=== PATIENT | male | born 1935 | race Caucasian/White ===

== ENCOUNTER 2020-06-07 13:47 | IRF | payer MEDICARE, SELFPAY ==
--- NOTE | ~2020-06-07 | XR_ITS ---
EXAMINATION: XR foot LT 2V DATE: 06/14/2020 15:18 INDICATION: Left great toe pain and swelling. TECHNIQUE: 2 views of left foot were obtained. COMPARISON: None. FINDINGS: There is moderate hallux valgus. There are dystrophic calcifications and soft tissue swelli ng medial to head of first metatarsal. No acute fracture. There is mild osteoarthritis of first metat arsophalangeal joint and some the interphalangeal joints and midfoot joints. There are enthesophytes at posterior and plantar aspects of calcaneal tuberosity. IMPRESSION: 1. Moderate hallux longus. 2. Dystrophic calcifications and soft tissue swelling medial to head of first metatarsal. 3. Polyarticular osteoarthritis. Reviewed, dictated and finalized at location A. IMPRESSION: 1. Moderate hallux longus. 2. Dystrophic calcifications and soft tissue swelling medial to head of first m etatarsal. 3. Polyarticular osteoarthritis.
--- NOTE | ~2020-06-07 | XR_ITS ---
EXAMINATION: XR hip RT 2V w AP pelvis EXAM DATE: 06/07/2020 18:05 INDICATION: Right hip pain, limited range of motion. TECHNIQUE: Right hip frontal, 'frog leg' projections for interpretation. Frontal projection pelvis. There is no prior study for comparison. FINDINGS: Moderate to severe right hip, moderate left hip osteoarthritis, probably primary osteoarthr itis. There are no acute pelvic or left hip fractures or dislocations identified. There is no subcut aneous gas. The soft tissue is unremarkable. There are no radiopaque foreign bodies. No evidence of avascular necrosis of the hips. IMPRESSION: Moderate to severe right, moderate left hip osteoarthritis. Reviewed, dictated and finalized at location A.
--- NOTE | 2020-06-07 13:51 | ADMGEN ---
This patient, Av Pimentel, was admitted to [facility] Room 221-01. Patient/family oriented to hospital policies and general routines including ID bracelet, bed and alarms, visiting hours, pain management, procedures, bathroom and other care routines, personal items, smoking policy, room service/diet, and visiting hours. Information on how to activate the Rapid Response Team has been discussed. Patient/Family are encouraged to report perceived risks to care and to ask questions if they do not understand what they are told or what they should do.
[2020-06-07 14:00] VITALS: BP 134/63; PULSE 65; RESP 16; TEMP 36.1; O2SAT 100
[2020-06-07 14:03] VITALS: BMI 33.5
--- NOTE | 2020-06-07 15:45 | WPDREHABHP ---
H&P: HPI History of Present Illness Date/Time: 06/07/20 15:45 Chief Complaint: CVA with left hemiplegia Narrative: HISTORY OF PRESENT ILLNESS: The patient's primary rehab impairment category is stroke The etiologic diagnosis is acute subcortical right hemispheric stroke, left a septal lobe subacute infarct I saw this patient [id number] on 06/07/2020 The patient is a 84-year-old male with past medical history of coronary artery disease hypertension hyperlipidemia diabetes mellitus osteoarthritis rheumatic fever as a child who recently had a non STEMI with stent placement.. Patient was getting cardiac rehab at [facility] on 06/03/2020 when patient began experiencing left-sided weakness. Initial NIH SS was 3. CT of the head showed no acute intracranial hemorrhage. Patient was given tPA and transferred to [facility]. Neurology was consulted. MRI of the brain showed acute subacute infarcts involving the posterior limb of the right internal capsule and left a several lobe. Carotid Dopplers revealed minimal plaques on the right and 50% on the left. Patient was started on aspirin and a statin and Plavix. A bedside swallow was performed and patient was instructed to not have straws. Patient was started on a regular consistency carbohydrate diet with reduced sodium. Patient had mild left-sided weakness decreased safety awareness and impaired balance. Patient will be discharged to rehab on aspirin and Plavix Therapy was initiated at the acute care facility and the patient transferred to us from [facility] on 06/07/2020 FALLS OR SURGERIES: The patient has had major surgeries in the 100 days prior to admission Cardiac stent placement. They had no falls in the past year. They had no falls with injury in the past year. PRIOR LEVEL OF FUNCTION: Eating was [INDEPENDENT] Oral Care was [INDEPENDENT] Toileting Hygiene was [INDEPENDENT] Shower/Bathing was [INDEPENDENT] Upper Body Dressing was [INDEPENDENT] Lower Body Dressing was [INDEPENDENT] Donning/[employer] Footwear was [INDEPENDENT] Rolling Left and Right was [INDEPENDENT] Sit to Lying was [INDEPENDENT] Lying to Sitting was [INDEPENDENT] Sit to Stand was [INDEPENDENT] Bed to Chair Transfers was [INDEPENDENT] Toilet Transfers was [INDEPENDENT] Walking was [INDEPENDENT] [>500 feet] with [NO DEVICE] Wheelchair Mobility was [NOT APPLICABLE PRIOR TO ADMISSION] Stairs were [INDEPENDENT] CURRENT LEVEL OF FUNCTION: Eating was setup or clean up assistance Oral Care was partial to moderate assistance Toileting Hygiene was substantial to maximal assistance Shower/Bathing was substantial to maximal assistance Upper Body Dressing was partial to moderate assistance Lower Body Dressing was substantial to maximal assistance Donning/[employer] Footwear was substantial to maximal assistance Rolling Left and Right was partial to moderate assistance Sit to Lying was partial to moderate assistance Lying to Sitting was partial to moderate assistance Sit to Stand was partial to moderate assistance Bed to Chair Transfers were partial to moderate assistance Toilet Transfers were partial to moderate assistance Walking was 40 ft with a roller walker at partial to moderate assistance Wheelchair Mobility was not tested Stairs were not test GOALS: Our therapists will evaluate the patient and establish the goals. However, upon pre-admission screening, the expected goals were to be [INDEPENDENT] with self-care, [INDEPENDENT] with transfers, and [INDEPENDENT] with functional mobility so that the patient can return home. ESTIMATED LENGTH OF STAY: 7-10 days POTENTIAL BARRIERS TO DISCHARGE: [Family needs training.] [Severity of condition.] ACTIVE CO-MORBIDITIES PRESENT ON ADMISSION: Active co-morbidities include coronary artery disease, hypertension, hyperlipidemia, type 2 diabetes, osteoarthritis, stage 4 chronic kidney disease, left
[2020-06-07 16:43] LABS: Glucose Point of Care 147 (65-105)
[2020-06-07 17:25] VITALS: PULSE 68
[2020-06-07] MEDS: carvediloL 12.5 MG TABLET PO (17:25)
[2020-06-07] MEDS: ACETAMINOPHEN 500 MG TABLET 1000 MG PO (17:25)
[2020-06-07] MEDS: DOCUSATE SODIUM 100 MG CAPSULE PO (20:41)
[2020-06-07] MEDS: TICAGRELOR 90 MG TABLET PO (20:41)
[2020-06-07 22:00] VITALS: BP 174/68; PULSE 61; RESP 16; TEMP 36.5; O2SAT 97
[2020-06-07 22:07] LABS: Glucose Point of Care 256 (65-105)
[2020-06-08 05:16] VITALS: BP 160/80; PULSE 63; RESP 16; TEMP 36.1; O2SAT 98
[2020-06-08 06:05] LABS: Basophils Percent Auto 0.2 % (0.2-1.2); Eosinophils Absolute Auto 0.2 K/mm3 (0-0.3); Eosinophils Percent Auto 1.9 % (0-4.4); Hematocrit 34.6 % (42.0-52.0); Hemoglobin 11.5 g/dL (14.0-18.0); Immature Granulocyte Absolute 0.05 K/mm3 (0.00-0.031); Immature Granulocyte Percent A 0.5 % (0-0.5); Lymphocytes Absolute Auto 1.03 K/mm3 (0.9-3.2); Mean Corpuscular HGB Conc 33.2 g/dl (32-36); Mean Corpuscular Hemoglobin 31.2 pg (26-34); Mean Corpuscular Volume 93.8 fl (80-100); Mean Platelet Volume 10.5 fl (7.4-10.4); Monocytes Percent Auto 10.3 % (2.6-8.5); Neutrophils Absolute Auto 7.1 K/mm3 (1.3-6.7); Neutrophils Percent Auto 76.1 % (45.5-73.1); Platelet Count Result 267 k/mm3 (150-375); Red Blood Count 3.69 M/mm3 (4.6-6.20); Red Cell Distribution Width 13.7 % (11.5-14.5); White Blood Count 9.3 K/mm3 (4.5-10.0)
[2020-06-08 06:15] LABS: Hemoglobin A1C 7.4 % (<5.7)
[2020-06-08 06:19] LABS: Anion Gap 7 mmol/L (8-16); Blood Urea Nitrogen 24 mg/dL (9-20); Carbon Dioxide 27 mmol/L (22-30); Chloride 104 mmol/L (98-107); Cholesterol 116 mg/dL (0-200); Estimated CRCL calculation 44 ml/min; Estimated Glomerular Filt Rate 53; Glucose 203 mg/dL (75-110); HDL Direct 34 mg/dL; Potassium 4.2 mmol/L (3.4-5.0); Sodium 138 mmol/L (137-145); Triglycerides 119 mg/dL (<150)
[2020-06-08 06:24] LABS: Glucose Point of Care 189 (65-105)
[2020-06-08 06:30] LABS: LDL Cholesterol Direct 48 mg/dL
[2020-06-08 09:05] VITALS: PULSE 63
[2020-06-08] MEDS: carvediloL 12.5 MG TABLET PO ×2 (09:05→17:03)
[2020-06-08] MEDS: ASCORBIC ACID 500 MG TABLET PO (09:06)
[2020-06-08] MEDS: ATORVASTATIN 40 MG TABLET 80 MG PO (09:06)
[2020-06-08] MEDS: ASPIRIN 81 MG CHEWABLE TABLET PO (09:06)
[2020-06-08] MEDS: MULTIVITAMINS THERAPEUTIC TAB (*BKC) 1 TABLET PO (09:07)
[2020-06-08] MEDS: DOCUSATE SODIUM 100 MG CAPSULE PO ×2 (09:07→20:47)
[2020-06-08] MEDS: CHOLECALCIFEROL 1,000 UNITS TABLET 2000 UNITS PO (09:07)
[2020-06-08] MEDS: lisinopriL 10 MG TABLET PO (09:07)
[2020-06-08] MEDS: FUROSEMIDE 40 MG TABLET PO (09:07)
[2020-06-08] MEDS: LACTULOSE 20 GM/30 ML UDC PO (09:07)
[2020-06-08] MEDS: PANTOPRAZOLE 40 MG TABLET PO (09:08)
[2020-06-08] MEDS: TICAGRELOR 90 MG TABLET PO ×2 (09:08→20:47)
[2020-06-08] MEDS: polyethylene glycoL 3350 17 GM POWD.PACK PO (09:12)
--- NOTE | 2020-06-08 09:48 | WPDNEURORHBP ---
Subjective Date/time seen: 06/08/20 09:48 Interval history: 84-year-old male with past medical history coronary artery disease hypertension, hyperlipidemia, diabetes mellitus, osteoarthritis, rheumatic fever as a child. Who recently underwent stent placement for NSTEMI. Roughly 2 weeks later patient experienced left hemiplegia. 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 Patient was transferred to [facility] and patient was placed on aspirin statin and Plavix. a bedside swallow revealed issues with drinking from a straw. Today patient complains of insomnia and right hip pain. Review of Systems Review of Systems: All systems reviewed & are unremarkable except as noted in HPI and below Exam Narrative: Exam Narrative: left facial droop is noted. Tongue is midline. Speech is fluent. Patient is able to follow 1 and 2 step directions. Heart rate and rhythm is regular. Lungs are clear. Abdomen is obese. Right upper extremity strength is 4/5. Right lower extremity hip strength is 2/5 with distal strength being 4/5. Left upper extremity strength is 3+ out of 5 with fine motor dexterity deficits. Left lower extremity strength is 3+ to 4-. Sensation is intact in both upper and lower extremities. Objective Data Vital Signs Vital Signs: Vital Signs - 24 hr 06/07/20 14:00 06/07/20 17:25 06/07/20 22:00 Temperature 36.1 C L 36.5 C Pulse Rate 65 68 61 Respiratory Rate 16 16 Blood Pressure 134/63 174/68 H Pulse Oximetry 100 97 06/08/20 05:16 06/08/20 09:05 Temperature 36.1 C L Pulse Rate 63 63 Respiratory Rate 16 Blood Pressure 160/80 H Pulse Oximetry 98 Intake/Output Intake/Output: Intake & Output 06/05/20 06/06/20 06/07/20 06/08/20 23:59 23:59 23:59 23:59 Intake Total 180 240 Balance 180 240 Meds/Results Medications: Active Medications Generic Name Dose Route Start Last Admin Trade Name Freq PRN Reason Stop Dose Admin Acetaminophen 1,000 mg 06/07/20 16:35 06/07/20 17:25 Acetaminophen 500 Mg Tablet PO 1,000 mg Q6H PRN Administration Mild Pain (1-3) or Fever Ascorbic Acid 500 mg 06/08/20 09:00 06/08/20 09:06 Ascorbic Acid 500 Mg Tablet PO 500 mg DAILY ELEN Administration Aspirin 81 mg 06/08/20 09:00 06/08/20 09:06 Aspirin 81 Mg Chewable Tablet PO 81 mg DAILY ELEN Administration Atorvastatin Calcium 80 mg 06/08/20 09:00 06/08/20 09:06 Atorvastatin 40 Mg Tablet PO 80 mg DAILY ELEN Administration Carvedilol 12.5 mg 06/07/20 17:00 06/08/20 09:05 Carvedilol 12.5 Mg Tablet PO 12.5 mg BIDWM ELEN Administration Dextrose 12.5 gm 06/07/20 16:34 Dextrose 50% 25 Gm/50 Ml Syringe IV PUSH PRN PRN Hypoglycemia Protocol Docusate Sodium 100 mg 06/07/20 21:00 06/08/20 09:07 Docusate Sodium 100 Mg Capsule PO 100 mg Q12HR ELEN Administration Furosemide 40 mg 06/08/20 09:00 06/08/20 09:07 Furosemide 40 Mg Tablet PO 40 mg DAILY ELEN Administration Glucagon 1 mg 06/07/20 16:34 Glucagon For Inj 1 Mg Vial IM PRN PRN Hypoglycemia Protocol Glucose 15 gm 06/07/20 16:34 Glucose Oral Gel 15 Gm Of Glucse In 37.5 Gm Tube PO PRN PRN Hypoglycemia Protocol Dextrose 1,000 mls @ 100 mls/hr 06/07/20 16:34 Dextrose 5% 1,000 Ml IVPB PRN PRN Hypoglycemia Protocol Insulin Aspart 4 - 8 units 06/07/20 17:00 06/08/20 09:06 Insulin Aspart (*Bkc) 100 Units/Ml SUB-Q Not Given TIDWM [facility] Protocol Insulin Glargine 20 units 06/07/20 21:00 Insulin Glargine (*Bkc) 100 Units/Ml SUB-Q Q12HR [facility] Lactulose 20 gm 06/08/20 09:00 06/08/20 09:07 Lactulose 20 Gm/30 Ml Udc PO 20 gm DAILY ELEN Administration Lisinopril 10 mg 06/08/20 09:00 06/08/20 09:07 Lisinopril 10 Mg Tablet PO 10 mg DAILY ELEN Administration Multivitamins Therapeutic 1 tabl
[2020-06-08 12:18] LABS: Glucose Point of Care 366 (65-105)
[2020-06-08] MEDS: ACETAMINOPHEN 500 MG TABLET 1000 MG PO ×2 (12:21→17:03)
[2020-06-08] MEDS: INSULIN ASPART (*BKC) 100 UNITS/ML SUB-Q ×2 (12:21→17:07)
[2020-06-08 14:00] VITALS: BP 158/81; PULSE 62; RESP 20; TEMP 36.8; O2SAT 97
[2020-06-08 15:26] LABS: Alanine Aminotransferase 14 U/L (4-50); Albumin Level 3.4 g/dL (3.5-5.1); Alkaline Phosphatase 89 U/L (38-126); Anion Gap 9 mmol/L (8-16); Aspartate Amino Transferase 26 U/L (17-59); Bilirubin,Total 0.6 mg/dL (0.2-1.3); Blood Urea Nitrogen 27 mg/dL (9-20); Calcium 8.5 mg/dL (8.4-10.2); Carbon Dioxide 24 mmol/L (22-30); Chloride 103 mmol/L (98-107); Estimated CRCL calculation 44 ml/min; Estimated Glomerular Filt Rate 53; Glucose 355 mg/dL (75-110); Potassium 4.8 mmol/L (3.4-5.0); Sodium 136 mmol/L (137-145); Uric Acid 6.1 mg/dL (3.5-8.5)
[2020-06-08 16:52] LABS: Glucose Point of Care 285 (65-105)
[2020-06-08 17:03] VITALS: PULSE 62
[2020-06-08] MEDS: INSULIN ASPART (*BKC) 100 UNITS/ML 10 UNITS SUB-Q (17:07)
[2020-06-08 20:00] VITALS: PULSE 58; RESP 18; O2SAT 100
[2020-06-08] MEDS: MELATONIN 3 MG TABLET PO (20:47)
[2020-06-08 20:50] VITALS: BP 134/60; PULSE 58; RESP 18; TEMP 36.1; O2SAT 100
[2020-06-08] MEDS: INSULIN GLARGINE (*BKC) 100 UNITS/ML 20 UNITS SUB-Q (21:02)
[2020-06-08 21:09] LABS: Glucose Point of Care 212 (65-105)
[2020-06-09] VITALS (7 sets, daily range): BP systolic 130–140; BP diastolic 61–66; PULSE 52–76; RESP 18–20; TEMP 35.9–36.8; O2SAT 96–99
[2020-06-09 08:12] LABS: Glucose Point of Care 167 (65-105)
--- NOTE | 2020-06-09 08:30 | PCSTNOTE ---
Please refer to the Bedside Swallow Evaluation in the EMR. Pt will exhibit overt SX of aspiration with use os straw and/or taking large drinks. Frequent observation is necessary in order to prevent any potential instances of aspiration. Pt is able to remember to not use a straw but requires verbal cues in order to take small sips.
--- NOTE | 2020-06-09 09:07 | WPDNEURORHBP ---
Subjective Date/time seen: 06/09/20 09:07 Interval history: 84-year-old male with past medical history coronary artery disease hypertension, hyperlipidemia, diabetes mellitus, osteoarthritis, gout, rheumatic fever as a child who recently underwent stent placement for NSTEMI. Roughly 2 weeks later patient experienced left hemiplegia. 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 Patient was transferred to [facility] and patient was placed on aspirin statin and Plavix. A bedside swallow revealed issues with drinking from a straw. Patient stated that I slept the best I ever have since being admitted to the hospital Patient has a history of gout and had pain to the R big toe. Pain is better today since starting Allopurinol Review of Systems Review of Systems: All systems reviewed & are unremarkable except as noted in HPI and below Functional Status Ambulation Ability Ability to Ambulate 10 Feet: Minimum Assistance X 1 Ability to Ambulate 50 Feet With 2 Turns: Minimum Assistance X 1 Ambulation Assistive Devices: Walker, Wheeled Exam Narrative: Exam Narrative: Left facial droop is noted. Tongue is midline. Speech is fluent. Patient is able to follow 1 and 2 step directions. Heart rate and rhythm is regular. Lungs are clear. Abdomen is obese. Right upper extremity strength is 4/5. Right lower extremity hip strength is 2/5 with distal strength being 4/5. Left upper extremity strength is 3+ out of 5 with fine motor dexterity deficits. Left lower extremity strength is 3+ to 4-. Sensation is intact in both upper and lower extremities. Transfers are max assist. Gait min assist 50 feet. Objective Data Vital Signs Vital Signs: Vital Signs - 24 hr 06/08/20 14:00 06/08/20 17:03 06/08/20 20:00 Temperature 36.8 C Pulse Rate 62 62 58 L Respiratory Rate 20 18 Blood Pressure 158/81 H Pulse Oximetry 97 100 06/08/20 20:50 06/09/20 05:36 Temperature 36.1 C L 35.9 C L Pulse Rate 58 L 52 L Respiratory Rate 18 18 Blood Pressure 134/60 138/61 Pulse Oximetry 100 99 Intake/Output Intake/Output: Intake & Output 06/06/20 06/07/20 06/08/20 06/09/20 23:59 23:59 23:59 23:59 Intake Total 180 720 Balance 180 720 Meds/Results Medications: Active Medications Generic Name Dose Route Start Last Admin Trade Name Frekun PRN Reason Stop Dose Admin Acetaminophen 1,000 mg 06/07/20 16:35 06/07/20 17:25 Acetaminophen 500 Mg Tablet PO 1,000 mg Q6H PRN Administration Mild Pain (1-3) or Fever Acetaminophen 1,000 mg 06/08/20 09:00 06/08/20 17:03 Acetaminophen 500 Mg Tablet PO 1,000 mg BID ELEN Administration Allopurinol 100 mg 06/09/20 08:00 Allopurinol 100 Mg Tablet PO 06/18/20 08:00 DAILY@0800 ELEN Ascorbic Acid 500 mg 06/08/20 09:00 06/08/20 09:06 Ascorbic Acid 500 Mg Tablet PO 500 mg DAILY ELEN Administration Aspirin 81 mg 06/08/20 09:00 06/08/20 09:06 Aspirin 81 Mg Chewable Tablet PO 81 mg DAILY ELEN Administration Atorvastatin Calcium 80 mg 06/08/20 09:00 06/08/20 09:06 Atorvastatin 40 Mg Tablet PO 80 mg DAILY ELEN Administration Carvedilol 12.5 mg 06/07/20 17:00 06/08/20 17:03 Carvedilol 12.5 Mg Tablet PO 12.5 mg BIDWM ELEN Administration Dextrose 12.5 gm 06/07/20 16:34 Dextrose 50% 25 Gm/50 Ml Syringe IV PUSH PRN PRN Hypoglycemia Protocol Docusate Sodium 100 mg 06/07/20 21:00 06/08/20 20:47 Docusate Sodium 100 Mg Capsule PO 100 mg Q12HR ELEN Administration Furosemide 40 mg 06/08/20 09:00 06/08/20 09:07 Furosemide 40 Mg Tablet PO 40 mg DAILY ELEN Administration Glucagon 1 mg 06/07/20 16:34 Glucagon For Inj 1 Mg Vial IM PRN PRN Hypoglycemia Protocol Glucose 15 gm 06/07/20 16:34 Glucose Oral Gel 15 Gm Of Glucse In 37.5 Gm Tube PO PRN PRN Hypoglycemia Protocol
[2020-06-09] MEDS: ACETAMINOPHEN 500 MG TABLET 1000 MG PO ×3 (09:37→21:20)
[2020-06-09] MEDS: ATORVASTATIN 40 MG TABLET 80 MG PO (09:37)
[2020-06-09] MEDS: CHOLECALCIFEROL 1,000 UNITS TABLET 2000 UNITS PO (09:37)
[2020-06-09] MEDS: TICAGRELOR 90 MG TABLET PO ×2 (09:37→21:10)
[2020-06-09] MEDS: ASPIRIN 81 MG CHEWABLE TABLET PO (09:37)
[2020-06-09] MEDS: carvediloL 12.5 MG TABLET PO ×2 (09:38→17:37)
[2020-06-09] MEDS: lisinopriL 10 MG TABLET PO (09:38)
[2020-06-09] MEDS: allopurinoL 100 MG TABLET PO (09:38)
[2020-06-09] MEDS: ASCORBIC ACID 500 MG TABLET PO (09:38)
[2020-06-09] MEDS: FUROSEMIDE 40 MG TABLET PO (09:38)
[2020-06-09] MEDS: DOCUSATE SODIUM 100 MG CAPSULE PO ×2 (09:38→21:10)
[2020-06-09] MEDS: polyethylene glycoL 3350 17 GM POWD.PACK PO (09:39)
[2020-06-09] MEDS: MULTIVITAMINS THERAPEUTIC TAB (*BKC) 1 TABLET PO (09:39)
[2020-06-09] MEDS: LACTULOSE 20 GM/30 ML UDC PO (09:39)
[2020-06-09] MEDS: PANTOPRAZOLE 40 MG TABLET PO (09:39)
[2020-06-09] MEDS: INSULIN ASPART (*BKC) 100 UNITS/ML 10 UNITS SUB-Q ×3 (09:42→17:38)
[2020-06-09] MEDS: INSULIN GLARGINE (*BKC) 100 UNITS/ML 20 UNITS SUB-Q ×2 (09:44→21:18)
[2020-06-09 12:25] LABS: Glucose Point of Care 373 (65-105)
[2020-06-09] MEDS: INSULIN ASPART (*BKC) 100 UNITS/ML SUB-Q ×2 (12:41→17:37)
[2020-06-09 16:57] LABS: Glucose Point of Care 332 (65-105)
[2020-06-09] MEDS: MELATONIN 3 MG TABLET PO (21:10)
[2020-06-09 21:38] LABS: Glucose Point of Care 196 (65-105)
[2020-06-10 05:09] VITALS: BP 136/76; PULSE 66; RESP 20; TEMP 36.1; O2SAT 99
[2020-06-10 06:45] LABS: Glucose Point of Care 149 (65-105)
[2020-06-10] MEDS: PANTOPRAZOLE 40 MG TABLET PO (08:37)
[2020-06-10] MEDS: CHOLECALCIFEROL 1,000 UNITS TABLET 2000 UNITS PO (08:37)
[2020-06-10] MEDS: LACTULOSE 20 GM/30 ML UDC PO (08:38)
[2020-06-10] MEDS: ATORVASTATIN 40 MG TABLET 80 MG PO (08:38)
[2020-06-10] MEDS: TICAGRELOR 90 MG TABLET PO ×2 (08:38→20:12)
[2020-06-10] MEDS: ASCORBIC ACID 500 MG TABLET PO (08:38)
[2020-06-10] MEDS: ACETAMINOPHEN 500 MG TABLET 1000 MG PO ×2 (08:38→18:10)
[2020-06-10 08:42] VITALS: PULSE 66
[2020-06-10] MEDS: carvediloL 12.5 MG TABLET PO ×2 (08:42→18:11)
[2020-06-10] MEDS: INSULIN ASPART (*BKC) 100 UNITS/ML 10 UNITS SUB-Q ×2 (08:42→12:44)
[2020-06-10] MEDS: ASPIRIN 81 MG CHEWABLE TABLET PO (08:43)
[2020-06-10] MEDS: FUROSEMIDE 40 MG TABLET PO (08:43)
[2020-06-10] MEDS: INSULIN GLARGINE (*BKC) 100 UNITS/ML 20 UNITS SUB-Q (08:43)
[2020-06-10] MEDS: DOCUSATE SODIUM 100 MG CAPSULE PO ×2 (08:43→20:12)
[2020-06-10] MEDS: polyethylene glycoL 3350 17 GM POWD.PACK PO (08:44)
[2020-06-10] MEDS: lisinopriL 10 MG TABLET PO (08:44)
[2020-06-10] MEDS: MULTIVITAMINS THERAPEUTIC TAB (*BKC) 1 TABLET PO (08:44)
[2020-06-10] MEDS: allopurinoL 100 MG TABLET PO (08:50)
--- NOTE | 2020-06-10 08:50 | RPD ---
INDIVIDUALIZED PLAN OF CARE FOR Av Pimentel Brief Synthesis of Pre-Admission Screen, Post-Admission Evaluation and Therapy Evaluations: The patient presents to rehab with an acute subcortical right hemispheric stroke. Comorbidities include coronary artery disease, hypertension, hyperlipidemia, diabetes mellitus type 2, osteoarthritis, stage IV chronic kidney disease, left facial droop, and status post tPA administration. The complexity of the patient's medical management, nursing, and therapy needs require an inpatient rehab hospital stay with a physician-led interdisciplinary team approach. The patient?s needs will be best met in an intensive program vs. at a lower level of care. The patient requires physician services for medical oversight and coordination of care. Emotional needs will be monitored as depression is a common sequelae of stroke. The patient needs physician monitoring and treatment of hypertension, diabetes mellitus, chronic kidney disease, monitoring for adverse reactions to new medications, monitoring of infection, and pain control. The patient requires nursing services for frequent neuro checks, anticoagulation therapy, medication management and education, pressure relief and skin care management, monitoring of labs, diabetes management and education, and fall/safety precautions. The patient will participate in stroke-specific education regarding risk modification to decrease the risk of further stroke; the family will also be invited to participate. Deficits include:ADLs, Balance, Endurance, Family Training/Education, Mobility, Pain Management, ROM, Safety, Strength, and Transfers. Municipal [employer] Magistrate/Case Management for: Discharge Planning and Patient/Family Counseling Physical Therapy: 5 days per week for 75 minutes. Treatments may include: Therapeutic Exercise, Gait Training, Neuromuscular Re-education, Transfer Training, Community Reintegration, Bed Mobility, Patient/Family Education, Wheelchair Mobility Group Therapy/Concurrent Therapy Rationales: -Improve attention span during functional activities in a distracted environment. -Enhance problem solving and/or adequate judgment skills during functional activities in a distracted environment. -Promote increased safety awareness in a distracted environment to reduce fall risk with functional tasks, transfers, and ambulation to allow a more safe, self-sufficient return to the home environment. -Improve dynamic balance skills to promote safety and independence with functional activities in a distracted environment for maximum gain. Occupational Therapy: 5 days per week for 75 minutes. Treatments may include: Therapeutic Exercise, Therapeutic Activity, Cognitive Training, Self-Care Transfer Training, Community Reintegration, Home Management, Patient/Family Education, Wheelchair Mobility Training, Energy Conservation Training Group Therapy/Concurrent Therapy Rationales: -Allow therapist to observe and teach generalization and carry-over of skills learned in individual therapy. -Enhance problem solving and sequencing skills during therapeutic activities in a distracted environment. -Promote increased safety awareness in a realistic setting to reduce fall risk with functional tasks due to visual and verbal distractions. -Increase functional level with ADLs, ADL transfers and use of adaptive equipment through therapeutic activities with others while promoting safety to allow a more safe, self-sufficient return home. Speech Therapy: 5 days per week for 30 minutes. Treatments may include: Dysphasia Therapy, Speech/Language/Communication Therapy, Cognitive Training, Patient/Family Education Group Therapy/Concurrent Therapy - Rationale: -Allow therapist to observe and teach generalization and carry-over of skills learned in individual therapy. -Improve comprehension skills with complex or abstract ideas through discussion in a realistic setting. -Enhance problem solving skills with complex issues during
--- NOTE | 2020-06-10 10:51 | WPDNEURORHBP ---
Subjective Date/time seen: 06/10/20 10:51 Interval history: 84-year-old male with past medical history coronary artery disease hypertension, hyperlipidemia, diabetes mellitus, osteoarthritis, gout, rheumatic fever as a child who recently underwent stent placement for NSTEMI. Roughly 2 weeks later patient experienced left hemiplegia. 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 Patient was transferred to [facility] and patient was placed on aspirin, statin and Plavix. A bedside swallow revealed issues with drinking from a straw. Patient voices no complaints. Review of Systems Review of Systems: All systems reviewed & are unremarkable except as noted in HPI and below Functional Status Ambulation Ability Ability to Ambulate 10 Feet: Minimum Assistance X 1 Ability to Ambulate 50 Feet With 2 Turns: Minimum Assistance X 1 Ambulation Assistive Devices: Walker, Wheeled Exam Narrative: Exam Narrative: Left facial droop is noted. Tongue is midline. Speech is fluent. Patient is able to follow 1 and 2 step directions. Heart rate and rhythm is regular. Lungs are clear. Abdomen is obese. Right upper extremity strength is 4/5. Right lower extremity hip strength is 2/5 with distal strength being 4/5. Left upper extremity strength is 3+ out of 5 with fine motor dexterity deficits. Left lower extremity strength is 3+ to 4-. Sensation is intact in both upper and lower extremities. Transfers are moderate assistance of 1. Gait is 150 ft with minimal assistance with a wheeled walker. Objective Data Vital Signs Vital Signs: Vital Signs - 24 hr 06/09/20 14:00 06/09/20 17:37 06/09/20 19:56 Temperature 36.8 C 35.9 C L Pulse Rate 68 68 54 L Respiratory Rate 20 18 Blood Pressure 140/66 130/64 Pulse Oximetry 96 97 06/09/20 20:00 06/10/20 05:09 06/10/20 08:42 Temperature 36.1 C L Pulse Rate 76 66 66 Respiratory Rate 18 20 Blood Pressure 136/76 Pulse Oximetry 97 99 Intake/Output Intake/Output: Intake & Output 06/07/20 06/08/20 06/09/20 06/10/20 23:59 23:59 23:59 23:59 Intake Total 180 720 720 240 Balance 180 720 720 240 Meds/Results Medications: Active Medications Generic Name Dose Route Start Last Admin Trade Name Danita PRN Reason Stop Dose Admin Acetaminophen 1,000 mg 06/07/20 16:35 06/09/20 21:20 Acetaminophen 500 Mg Tablet PO 1,000 mg Q6H PRN Administration Mild Pain (1-3) or Fever Acetaminophen 1,000 mg 06/08/20 09:00 06/10/20 08:38 Acetaminophen 500 Mg Tablet PO 1,000 mg BID ELEN Administration Allopurinol 100 mg 06/09/20 08:00 06/10/20 08:50 Allopurinol 100 Mg Tablet PO 06/18/20 08:00 100 mg DAILY@0800 ELEN Administration Ascorbic Acid 500 mg 06/08/20 09:00 06/10/20 08:38 Ascorbic Acid 500 Mg Tablet PO 500 mg DAILY ELEN Administration Aspirin 81 mg 06/08/20 09:00 06/10/20 08:43 Aspirin 81 Mg Chewable Tablet PO 81 mg DAILY ELEN Administration Atorvastatin Calcium 80 mg 06/08/20 09:00 06/10/20 08:38 Atorvastatin 40 Mg Tablet PO 80 mg DAILY ELEN Administration Carvedilol 12.5 mg 06/07/20 17:00 06/10/20 08:42 Carvedilol 12.5 Mg Tablet PO 12.5 mg BIDWM ELEN Administration Dextrose 12.5 gm 06/07/20 16:34 Dextrose 50% 25 Gm/50 Ml Syringe IV PUSH PRN PRN Hypoglycemia Protocol Docusate Sodium 100 mg 06/07/20 21:00 06/10/20 08:43 Docusate Sodium 100 Mg Capsule PO 100 mg Q12HR ELEN Administration Furosemide 40 mg 06/08/20 09:00 06/10/20 08:43 Furosemide 40 Mg Tablet PO 40 mg DAILY ELEN Administration Glucagon 1 mg 06/07/20 16:34 Glucagon For Inj 1 Mg Vial IM PRN PRN Hypoglycemia Protocol Glucose 15 gm 06/07/20 16:34 Glucose Oral Gel 15 Gm Of Glucse In 37.5 Gm Tube PO PRN PRN Hypoglycemia Protocol Dextrose 1,000 mls @ 100 mls/hr 06/07/20 16:34 D
[2020-06-10 11:56] LABS: Glucose Point of Care 353 (65-105)
[2020-06-10 13:00] VITALS: BMI 33.5
--- NOTE | 2020-06-10 13:21 | PCNSR ---
On 06/10/20, the student, Hodan Estevez, provided care and completed [facility] documentation on this patient. I have reviewed the student's documentation and agree with the findings.
[2020-06-10 14:00] VITALS: BP 122/48; PULSE 58; RESP 18; TEMP 36.6; O2SAT 97
--- NOTE | 2020-06-10 16:06 | PCPTNOTE ---
Av Pimentel was evaluated for a wheeled walker on 06/10/2020 by this physical therapist. The wheeled walker will resolve patient's mobility limitations and will be used for ADL's within the home. The patient can safely use the wheeled walker. ?The wheeled walker will resolve the patient?s mobility deficits, including decreased balance, endurance and L hemiparesis.
[2020-06-10 16:48] LABS: Glucose Point of Care 271 (65-105)
[2020-06-10 18:11] VITALS: PULSE 58
[2020-06-10] MEDS: INSULIN ASPART (*BKC) 100 UNITS/ML 14 UNITS SUB-Q (18:11)
[2020-06-10 19:55] LABS: Glucose Point of Care 363 (65-105)
[2020-06-10] MEDS: INSULIN GLARGINE (*BKC) 100 UNITS/ML 24 UNITS SUB-Q (20:11)
[2020-06-10] MEDS: MELATONIN 3 MG TABLET PO (20:12)
[2020-06-10 21:54] VITALS: BP 144/64; PULSE 65; RESP 16; TEMP 37; O2SAT 98
[2020-06-11 01:57] LABS: Glucose Point of Care 204 (65-105)
[2020-06-11 06:00] VITALS: BP 179/68; PULSE 66; RESP 16; TEMP 36.2; O2SAT 97
[2020-06-11 06:36] LABS: Glucose Point of Care 153 (65-105)
[2020-06-11] MEDS: INSULIN ASPART (*BKC) 100 UNITS/ML 14 UNITS SUB-Q ×3 (07:45→17:48)
[2020-06-11] MEDS: INSULIN GLARGINE (*BKC) 100 UNITS/ML 24 UNITS SUB-Q ×2 (07:46→20:21)
[2020-06-11] MEDS: MULTIVITAMINS THERAPEUTIC TAB (*BKC) 1 TABLET PO (08:55)
[2020-06-11] MEDS: CHOLECALCIFEROL 1,000 UNITS TABLET 2000 UNITS PO (08:55)
[2020-06-11] MEDS: ASCORBIC ACID 500 MG TABLET PO (08:55)
[2020-06-11] MEDS: DOCUSATE SODIUM 100 MG CAPSULE PO ×2 (08:55→20:21)
[2020-06-11] MEDS: lisinopriL 10 MG TABLET PO (08:55)
[2020-06-11] MEDS: ATORVASTATIN 40 MG TABLET 80 MG PO (08:55)
[2020-06-11 08:56] VITALS: PULSE 68
[2020-06-11] MEDS: ASPIRIN 81 MG CHEWABLE TABLET PO (08:56)
[2020-06-11] MEDS: PANTOPRAZOLE 40 MG TABLET PO (08:56)
[2020-06-11] MEDS: TICAGRELOR 90 MG TABLET PO ×2 (08:56→20:21)
[2020-06-11] MEDS: FUROSEMIDE 40 MG TABLET PO (08:56)
[2020-06-11] MEDS: allopurinoL 100 MG TABLET PO (08:56)
[2020-06-11] MEDS: carvediloL 12.5 MG TABLET PO ×2 (08:56→17:48)
[2020-06-11] MEDS: ACETAMINOPHEN 500 MG TABLET 1000 MG PO ×2 (08:56→17:48)
[2020-06-11 11:53] LABS: Glucose Point of Care 206 (65-105)
[2020-06-11] MEDS: INSULIN ASPART (*BKC) 100 UNITS/ML SUB-Q (12:23)
[2020-06-11 14:00] VITALS: BP 162/71; PULSE 69; RESP 20; TEMP 36.3; O2SAT 96
--- NOTE | 2020-06-11 14:40 | WPDNEURORHBP ---
Subjective Date/time seen: 06/11/20 14:40 Interval history: 84-year-old male with past medical history coronary artery disease, hypertension, hyperlipidemia, diabetes mellitus, osteoarthritis, gout, rheumatic fever as a child who recently underwent stent placement for NSTEMI. Roughly 2 weeks later patient experienced left hemiplegia. 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 Patient was transferred to [facility] and patient was placed on aspirin, statin and Plavix. A bedside swallow revealed issues with drinking from a straw. Patient admits to a good night sleep. is present Review of Systems Review of Systems: All systems reviewed & are unremarkable except as noted in HPI and below Functional Status Ambulation Ability Ability to Ambulate 10 Feet: Minimum Assistance X 1 Ability to Ambulate 50 Feet With 2 Turns: Minimum Assistance X 1 Ability to Ambulate 150 Feet: Minimum Assistance X 1 Ambulation Assistive Devices: Walker, Wheeled Transfers Ability Ability to Transfer In/Out of Chair: Minimum Assistance X 1 Exam Narrative: Exam Narrative: Left facial droop is noted. Tongue is midline. Speech is fluent. Patient is able to follow 1 and 2 step directions. Heart rate and rhythm is regular. Lungs are clear. Abdomen is obese. Right upper extremity strength is 4/5. Right lower extremity hip strength is 2/5 with distal strength being 4/5. Left upper extremity strength is 3+ out of 5 with fine motor dexterity deficits. Left lower extremity strength is 3+ to 4-. Sensation is intact in both upper and lower extremities. Transfers are moderate assistance of 1. Gait is 150 ft with minimal assistance with a wheeled walker. Objective Data Vital Signs Vital Signs: Vital Signs - 24 hr 06/10/20 18:11 06/10/20 21:54 06/11/20 06:00 Temperature 37.0 C 36.2 C L Pulse Rate 58 L 65 66 Respiratory Rate 16 16 Blood Pressure 144/64 H 179/68 H Pulse Oximetry 98 97 06/11/20 08:56 06/11/20 14:00 Temperature 36.3 C L Pulse Rate 68 69 Respiratory Rate 20 Blood Pressure 162/71 H Pulse Oximetry 96 Intake/Output Intake/Output: Intake & Output 06/08/20 06/09/20 06/10/20 06/11/20 23:59 23:59 23:59 23:59 Intake Total 720 720 720 480 Balance 720 720 720 480 Meds/Results Medications: Active Medications Generic Name Dose Route Start Last Admin Trade Name Danita PRN Reason Stop Dose Admin Acetaminophen 1,000 mg 06/07/20 16:35 06/09/20 21:20 Acetaminophen 500 Mg Tablet PO 1,000 mg Q6H PRN Administration Mild Pain (1-3) or Fever Acetaminophen 1,000 mg 06/08/20 09:00 06/11/20 08:56 Acetaminophen 500 Mg Tablet PO 1,000 mg BID ELEN Administration Allopurinol 100 mg 06/09/20 08:00 06/11/20 08:56 Allopurinol 100 Mg Tablet PO 06/18/20 08:00 100 mg DAILY@0800 LEEN Administration Ascorbic Acid 500 mg 06/08/20 09:00 06/11/20 08:55 Ascorbic Acid 500 Mg Tablet PO 500 mg DAILY ELEN Administration Aspirin 81 mg 06/08/20 09:00 06/11/20 08:56 Aspirin 81 Mg Chewable Tablet PO 81 mg DAILY ELEN Administration Atorvastatin Calcium 80 mg 06/08/20 09:00 06/11/20 08:55 Atorvastatin 40 Mg Tablet PO 80 mg DAILY ELEN Administration Carvedilol 12.5 mg 06/07/20 17:00 06/11/20 08:56 Carvedilol 12.5 Mg Tablet PO 12.5 mg BIDWM ELEN Administration Dextrose 12.5 gm 06/07/20 16:34 Dextrose 50% 25 Gm/50 Ml Syringe IV PUSH PRN PRN Hypoglycemia Protocol Docusate Sodium 100 mg 06/07/20 21:00 06/11/20 08:55 Docusate Sodium 100 Mg Capsule PO 100 mg Q12HR ELEN Administration Furosemide 40 mg 06/08/20 09:00 06/11/20 08:56 Furosemide 40 Mg Tablet PO 40 mg DAILY ELEN Administration Glucagon 1 mg 06/07/20 16:34 Glucagon For Inj 1 Mg Vial IM PRN PRN Hypoglycemia Protocol Glucose 15 gm 06/07/20 16:34 Glucose Oral G
[2020-06-11 17:13] LABS: Glucose Point of Care 143 (65-105)
[2020-06-11 17:48] VITALS: PULSE 69
[2020-06-11] MEDS: MELATONIN 3 MG TABLET PO (20:21)
[2020-06-11 20:40] LABS: Glucose Point of Care 198 (65-105)
[2020-06-11 22:00] VITALS: BP 172/68; PULSE 60; RESP 16; TEMP 36.3; O2SAT 98
[2020-06-12 06:00] VITALS: BP 171/63; PULSE 61; RESP 18; TEMP 36.1; O2SAT 99
[2020-06-12 06:40] LABS: Glucose Point of Care 179 (65-105)
[2020-06-12 08:00] VITALS: PULSE 61; RESP 18; O2SAT 99
[2020-06-12] MEDS: CHOLECALCIFEROL 1,000 UNITS TABLET 2000 UNITS PO (08:44)
[2020-06-12] MEDS: ATORVASTATIN 40 MG TABLET 80 MG PO (08:44)
[2020-06-12] MEDS: TICAGRELOR 90 MG TABLET PO ×2 (08:44→20:53)
[2020-06-12] MEDS: MULTIVITAMINS THERAPEUTIC TAB (*BKC) 1 TABLET PO (08:44)
[2020-06-12 08:45] VITALS: PULSE 61
[2020-06-12] MEDS: DOCUSATE SODIUM 100 MG CAPSULE PO (08:45)
[2020-06-12] MEDS: ASCORBIC ACID 500 MG TABLET PO (08:45)
[2020-06-12] MEDS: FUROSEMIDE 40 MG TABLET PO (08:45)
[2020-06-12] MEDS: carvediloL 12.5 MG TABLET PO ×2 (08:45→17:13)
[2020-06-12] MEDS: allopurinoL 100 MG TABLET PO (08:45)
[2020-06-12] MEDS: ASPIRIN 81 MG CHEWABLE TABLET PO (08:45)
[2020-06-12] MEDS: ACETAMINOPHEN 500 MG TABLET 1000 MG PO ×2 (08:45→17:13)
[2020-06-12] MEDS: lisinopriL 10 MG TABLET PO (08:45)
[2020-06-12] MEDS: PANTOPRAZOLE 40 MG TABLET PO (08:45)
[2020-06-12] MEDS: INSULIN GLARGINE (*BKC) 100 UNITS/ML 30 UNITS SUB-Q (08:47)
[2020-06-12] MEDS: INSULIN ASPART (*BKC) 100 UNITS/ML 14 UNITS SUB-Q ×2 (08:49→12:12)
[2020-06-12 12:04] LABS: Glucose Point of Care 390 (65-105)
[2020-06-12] MEDS: INSULIN ASPART (*BKC) 100 UNITS/ML SUB-Q (12:12)
--- NOTE | 2020-06-12 13:56 | WPDNEURORHBP ---
Subjective Date/time seen: 06/12/20 13:56 Interval history: 84-year-old male with past medical history coronary artery disease, hypertension, hyperlipidemia, diabetes mellitus, osteoarthritis, gout, rheumatic fever as a child who recently underwent stent placement for NSTEMI. Roughly 2 weeks later patient experienced left hemiplegia. 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 Patient was transferred to [facility] and patient was placed on aspirin, statin and Plavix. A bedside swallow revealed issues with drinking from a straw. Patient upset with response time with nursing in the evening. Patient stated he needed assistance getting his shirt off but no one came in 30 minutes. Patient stated that he pressed the call light multiple times. Each time, staff said they would be in to assist. Patient attempted to take his shirt off on his own which he was successful with. Patient then spilled water in bed. Spoke to DON regarding situation Review of Systems Review of Systems: All systems reviewed & are unremarkable except as noted in HPI and below Functional Status Ambulation Ability Ability to Ambulate 10 Feet: Standby Assistance Ability to Ambulate 50 Feet With 2 Turns: Standby Assistance Ability to Ambulate 150 Feet: Contact Guard Ambulation Assistive Devices: Walker, Wheeled Transfers Ability Ability to Transfer In/Out of Chair: Minimum Assistance X 1 Exam Narrative: Exam Narrative: Left facial droop is noted. Tongue is midline. Speech is fluent. Patient is able to follow 1 and 2 step directions. Heart rate and rhythm is regular. Lungs are clear. Abdomen is obese. Right upper extremity strength is 4/5. Right lower extremity hip strength is 2/5 with distal strength being 4/5. Left upper extremity strength is 3+ out of 5 with fine motor dexterity deficits. Left lower extremity strength is 3+ to 4-. Sensation is intact in both upper and lower extremities. Transfers are min assistance of 1. Gait is 150 ft with CGA with a wheeled walker. Objective Data Vital Signs Vital Signs: Vital Signs - 24 hr 06/11/20 14:00 06/11/20 17:48 06/11/20 22:00 Temperature 36.3 C L 36.3 C L Pulse Rate 69 69 60 Respiratory Rate 20 16 Blood Pressure 162/71 H 172/68 H Pulse Oximetry 96 98 06/12/20 06:00 06/12/20 08:00 06/12/20 08:45 Temperature 36.1 C L Pulse Rate 61 61 61 Respiratory Rate 18 18 Blood Pressure 171/63 H Pulse Oximetry 99 99 Intake/Output Intake/Output: Intake & Output 06/09/20 06/10/20 06/11/20 06/12/20 23:59 23:59 23:59 23:59 Intake Total 720 720 720 600 Balance 720 720 720 600 Meds/Results Medications: Active Medications Generic Name Dose Route Start Last Admin Trade Name Freq PRN Reason Stop Dose Admin Acetaminophen 1,000 mg 06/07/20 16:35 06/09/20 21:20 Acetaminophen 500 Mg Tablet PO 1,000 mg Q6H PRN Administration Mild Pain (1-3) or Fever Acetaminophen 1,000 mg 06/08/20 09:00 06/12/20 08:45 Acetaminophen 500 Mg Tablet PO 1,000 mg BID ELEN Administration Allopurinol 100 mg 06/09/20 08:00 06/12/20 08:45 Allopurinol 100 Mg Tablet PO 06/18/20 08:00 100 mg DAILY@0800 ELEN Administration Ascorbic Acid 500 mg 06/08/20 09:00 06/12/20 08:45 Ascorbic Acid 500 Mg Tablet PO 500 mg DAILY ELEN Administration Aspirin 81 mg 06/08/20 09:00 06/12/20 08:45 Aspirin 81 Mg Chewable Tablet PO 81 mg DAILY ELEN Administration Atorvastatin Calcium 80 mg 06/08/20 09:00 06/12/20 08:44 Atorvastatin 40 Mg Tablet PO 80 mg DAILY ELEN Administration Carvedilol 12.5 mg 06/07/20 17:00 06/12/20 08:45 Carvedilol 12.5 Mg Tablet PO 12.5 mg BIDWM ELEN Administration Dextrose 12.5 gm 06/07/20 16:34 Dextrose 50% 25 Gm/50 Ml Syringe IV PUSH PRN PRN Hypoglycemia Protocol Docusate Sodium 100 mg 06/12/20 11:23 Docusate Sodium 100 M
[2020-06-12 14:00] VITALS: BP 162/76; PULSE 64; RESP 18; TEMP 36.7; O2SAT 96
[2020-06-12 16:58] LABS: Glucose Point of Care 135 (65-105)
[2020-06-12 17:13] VITALS: PULSE 64
[2020-06-12] MEDS: INSULIN ASPART (*BKC) 100 UNITS/ML 16 UNITS SUB-Q (17:15)
[2020-06-12 20:07] LABS: Glucose Point of Care 201 (65-105)
[2020-06-12 20:47] VITALS: BP 130/58; PULSE 59; RESP 18; TEMP 36.2; O2SAT 99
[2020-06-12] MEDS: MELATONIN 3 MG TABLET PO (20:53)
[2020-06-12] MEDS: INSULIN GLARGINE (*BKC) 100 UNITS/ML 26 UNITS SUB-Q (20:53)
[2020-06-13 05:32] VITALS: BP 163/71; PULSE 57; RESP 20; TEMP 35.9; O2SAT 96
[2020-06-13 06:24] LABS: Glucose Point of Care 191 (65-105)
[2020-06-13 09:21] VITALS: PULSE 57
[2020-06-13] MEDS: allopurinoL 100 MG TABLET PO (09:21)
[2020-06-13] MEDS: ACETAMINOPHEN 500 MG TABLET 1000 MG PO ×2 (09:21→17:27)
[2020-06-13] MEDS: carvediloL 12.5 MG TABLET PO ×2 (09:21→17:27)
[2020-06-13] MEDS: INSULIN GLARGINE (*BKC) 100 UNITS/ML 30 UNITS SUB-Q (09:24)
[2020-06-13] MEDS: INSULIN ASPART (*BKC) 100 UNITS/ML 16 UNITS SUB-Q ×3 (09:25→17:26)
[2020-06-13] MEDS: ASCORBIC ACID 500 MG TABLET PO (09:26)
[2020-06-13] MEDS: CHOLECALCIFEROL 1,000 UNITS TABLET 2000 UNITS PO (09:26)
[2020-06-13] MEDS: TICAGRELOR 90 MG TABLET PO ×2 (09:27→21:13)
[2020-06-13] MEDS: FUROSEMIDE 40 MG TABLET PO (09:27)
[2020-06-13] MEDS: MULTIVITAMINS THERAPEUTIC TAB (*BKC) 1 TABLET PO (09:27)
[2020-06-13] MEDS: PANTOPRAZOLE 40 MG TABLET PO (09:27)
[2020-06-13] MEDS: ASPIRIN 81 MG CHEWABLE TABLET PO (09:27)
[2020-06-13] MEDS: lisinopriL 10 MG TABLET PO (09:27)
[2020-06-13] MEDS: ATORVASTATIN 40 MG TABLET 80 MG PO (09:27)
[2020-06-13 11:57] LABS: Glucose Point of Care 291 (65-105)
[2020-06-13 14:00] VITALS: BP 132/54; PULSE 64; RESP 18; TEMP 36; O2SAT 99
--- NOTE | 2020-06-13 15:43 | WPDNEURORHBP ---
Subjective Date/time seen: 06/13/20 15:43 Interval history: 84-year-old male with past medical history coronary artery disease, hypertension, hyperlipidemia, diabetes mellitus, osteoarthritis, gout, rheumatic fever as a child who recently underwent stent placement for NSTEMI. Roughly 2 weeks later patient experienced left hemiplegia. 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 Patient was transferred to [facility] and patient was placed on aspirin, statin and Plavix. A bedside swallow revealed issues with drinking from a straw. Patient seen during gait. Patient voices no complaints Review of Systems Review of Systems: All systems reviewed & are unremarkable except as noted in HPI and below Functional Status Ambulation Ability Ability to Ambulate 10 Feet: Standby Assistance Ability to Ambulate 50 Feet With 2 Turns: Standby Assistance Ability to Ambulate 150 Feet: Contact Guard Ambulation Assistive Devices: Walker, Wheeled Transfers Ability Ability to Transfer In/Out of Chair: Contact Guard Exam Narrative: Exam Narrative: Left facial droop is noted. Tongue is midline. Speech is fluent. Heart rate and rhythm is regular. Lungs are clear. Abdomen is obese. Right upper extremity strength is 4/5. Right lower extremity hip strength is 3/5 with distal strength being 4/5. Left upper extremity strength is 3+ out of 5 with fine motor dexterity deficits. Left lower extremity strength is 3+ to 4-. Sensation is intact in both upper and lower extremities. Transfers are min assistance of 1. Gait is 150 ft with CGA with a wheeled walker. Overall balance improved. Objective Data Vital Signs Vital Signs: Vital Signs - 24 hr 06/12/20 17:13 06/12/20 20:47 06/13/20 05:32 Temperature 36.2 C L 35.9 C L Pulse Rate 64 59 L 57 L Respiratory Rate 18 20 Blood Pressure 130/58 L 163/71 H Pulse Oximetry 99 96 06/13/20 09:21 06/13/20 14:00 Temperature 36.0 C L Pulse Rate 57 L 64 Respiratory Rate 18 Blood Pressure 132/54 L Pulse Oximetry 99 Intake/Output Intake/Output: Intake & Output 06/10/20 06/11/20 06/12/20 06/13/20 23:59 23:59 23:59 23:59 Intake Total 720 720 840 960 Balance 720 720 840 960 Meds/Results Medications: Active Medications Generic Name Dose Route Start Last Admin Trade Name Danita PRN Reason Stop Dose Admin Acetaminophen 1,000 mg 06/07/20 16:35 06/09/20 21:20 Acetaminophen 500 Mg Tablet PO 1,000 mg Q6H PRN Administration Mild Pain (1-3) or Fever Acetaminophen 1,000 mg 06/08/20 09:00 06/13/20 09:21 Acetaminophen 500 Mg Tablet PO 1,000 mg BID ELEN Administration Allopurinol 100 mg 06/09/20 08:00 06/13/20 09:21 Allopurinol 100 Mg Tablet PO 06/18/20 08:00 100 mg DAILY@0800 ELEN Administration Ascorbic Acid 500 mg 06/08/20 09:00 06/13/20 09:26 Ascorbic Acid 500 Mg Tablet PO 500 mg DAILY ELEN Administration Aspirin 81 mg 06/08/20 09:00 06/13/20 09:27 Aspirin 81 Mg Chewable Tablet PO 81 mg DAILY ELEN Administration Atorvastatin Calcium 80 mg 06/08/20 09:00 06/13/20 09:27 Atorvastatin 40 Mg Tablet PO 80 mg DAILY ELEN Administration Carvedilol 12.5 mg 06/07/20 17:00 06/13/20 09:21 Carvedilol 12.5 Mg Tablet PO 12.5 mg BIDWM ELEN Administration Dextrose 12.5 gm 06/07/20 16:34 Dextrose 50% 25 Gm/50 Ml Syringe IV PUSH PRN PRN Hypoglycemia Protocol Docusate Sodium 100 mg 06/12/20 11:23 Docusate Sodium 100 Mg Capsule PO Q12HR PRN Constipation Furosemide 40 mg 06/08/20 09:00 06/13/20 09:27 Furosemide 40 Mg Tablet PO 40 mg DAILY ELEN Administration Glucagon 1 mg 06/07/20 16:34 Glucagon For Inj 1 Mg Vial IM PRN PRN Hypoglycemia Protocol Glucose 15 gm 06/07/20 16:34 Glucose Oral Gel 15 Gm Of Glucse In 37.5 Gm Tube PO PRN PRN Hypoglycemia Protocol D
[2020-06-13 16:43] LABS: Glucose Point of Care 231 (65-105)
[2020-06-13 17:27] VITALS: PULSE 64
[2020-06-13 20:55] VITALS: BP 140/58; PULSE 58; RESP 18; TEMP 36.1; O2SAT 97
[2020-06-13] MEDS: MELATONIN 3 MG TABLET PO (21:13)
[2020-06-13] MEDS: INSULIN GLARGINE (*BKC) 100 UNITS/ML 26 UNITS SUB-Q (21:18)
[2020-06-13 22:17] LABS: Glucose Point of Care 244 (65-105)
[2020-06-14 05:18] VITALS: BP 136/57; PULSE 57; RESP 18; TEMP 35.9; O2SAT 97
[2020-06-14 06:39] LABS: Glucose Point of Care 125 (65-105)
[2020-06-14] MEDS: INSULIN GLARGINE (*BKC) 100 UNITS/ML 30 UNITS SUB-Q (09:15)
[2020-06-14] MEDS: INSULIN ASPART (*BKC) 100 UNITS/ML 16 UNITS SUB-Q ×3 (09:16→17:41)
[2020-06-14] MEDS: TICAGRELOR 90 MG TABLET PO ×2 (09:17→21:13)
[2020-06-14] MEDS: ATORVASTATIN 40 MG TABLET 80 MG PO (09:17)
[2020-06-14] MEDS: allopurinoL 100 MG TABLET PO (09:17)
[2020-06-14 09:18] VITALS: PULSE 57
[2020-06-14] MEDS: lisinopriL 10 MG TABLET PO (09:18)
[2020-06-14] MEDS: carvediloL 12.5 MG TABLET PO ×2 (09:18→17:40)
[2020-06-14] MEDS: PANTOPRAZOLE 40 MG TABLET PO (09:18)
[2020-06-14] MEDS: ASPIRIN 81 MG CHEWABLE TABLET PO (09:18)
[2020-06-14] MEDS: FUROSEMIDE 40 MG TABLET PO (09:18)
[2020-06-14] MEDS: ACETAMINOPHEN 500 MG TABLET 1000 MG PO ×2 (09:18→17:40)
[2020-06-14] MEDS: MULTIVITAMINS THERAPEUTIC TAB (*BKC) 1 TABLET PO (09:18)
[2020-06-14] MEDS: CHOLECALCIFEROL 1,000 UNITS TABLET 2000 UNITS PO (09:19)
[2020-06-14] MEDS: ASCORBIC ACID 500 MG TABLET PO (09:19)
[2020-06-14 11:52] LABS: Glucose Point of Care 277 (65-105)
[2020-06-14 14:00] VITALS: BP 149/56; PULSE 62; RESP 18; TEMP 36.1; O2SAT 99
--- NOTE | 2020-06-14 16:20 | WPDNEURORHBP ---
Subjective Date/time seen: 06/14/20 16:20 Interval history: 84-year-old male with past medical history coronary artery disease, hypertension, hyperlipidemia, diabetes mellitus, osteoarthritis, gout, rheumatic fever as a child who recently underwent stent placement for NSTEMI. Roughly 2 weeks later patient experienced left hemiplegia. 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 Patient was transferred to [facility] and patient was placed on aspirin, statin and Plavix. A bedside swallow revealed issues with drinking from a straw. Patient seen multiple times throughout the day. Patient complains of R foot pain to first metatarsal. Review of Systems Review of Systems: All systems reviewed & are unremarkable except as noted in HPI and below Functional Status Ambulation Ability Ability to Ambulate 10 Feet: Standby Assistance Ability to Ambulate 50 Feet With 2 Turns: Standby Assistance Ability to Ambulate 150 Feet: Contact Guard Ambulation Assistive Devices: Walker, Wheeled Transfers Ability Ability to Transfer In/Out of Chair: Contact Guard Exam Narrative: Exam Narrative: Left facial droop is noted. Tongue is midline. Speech is fluent. Heart rate and rhythm is regular. Lungs are clear. Abdomen is obese. Right upper extremity strength is 4/5. Right lower extremity hip strength is 3/5 with distal strength being 4/5. Left upper extremity strength is 3+ out of 5 with fine motor dexterity deficits. Left lower extremity strength is 3+ to 4-. Sensation is intact in both upper and lower extremities. Left foot: Area is swollen and red, no warmth is noted. Transfers are CGA. Gait is 150 ft with SBA with a wheeled walker. Overall balance improved. Objective Data Vital Signs Vital Signs: Vital Signs - 24 hr 06/13/20 17:27 06/13/20 20:55 06/14/20 05:18 Temperature 36.1 C L 35.9 C L Pulse Rate 64 58 L 57 L Respiratory Rate 18 18 Blood Pressure 140/58 L 136/57 L Pulse Oximetry 97 97 06/14/20 09:18 06/14/20 14:00 Temperature 36.1 C L Pulse Rate 57 L 62 Respiratory Rate 18 Blood Pressure 149/56 H Pulse Oximetry 99 Intake/Output Intake/Output: Intake & Output 06/11/20 06/12/20 06/13/20 06/14/20 23:59 23:59 23:59 23:59 Intake Total 638 701 6758 480 Balance 391 714 2822 480 Meds/Results Medications: Active Medications Generic Name Dose Route Start Last Admin Trade Name Danita PRN Reason Stop Dose Admin Acetaminophen 1,000 mg 06/07/20 16:35 06/09/20 21:20 Acetaminophen 500 Mg Tablet PO 1,000 mg Q6H PRN Administration Mild Pain (1-3) or Fever Acetaminophen 1,000 mg 06/08/20 09:00 06/14/20 09:18 Acetaminophen 500 Mg Tablet PO 1,000 mg BID ELEN Administration Allopurinol 100 mg 06/09/20 08:00 06/14/20 09:17 Allopurinol 100 Mg Tablet PO 06/18/20 08:00 100 mg DAILY@0800 ELEN Administration Ascorbic Acid 500 mg 06/08/20 09:00 06/14/20 09:19 Ascorbic Acid 500 Mg Tablet PO 500 mg DAILY ELEN Administration Aspirin 81 mg 06/08/20 09:00 06/14/20 09:18 Aspirin 81 Mg Chewable Tablet PO 81 mg DAILY ELEN Administration Atorvastatin Calcium 80 mg 06/08/20 09:00 06/14/20 09:17 Atorvastatin 40 Mg Tablet PO 80 mg DAILY ELEN Administration Carvedilol 12.5 mg 06/07/20 17:00 06/14/20 09:18 Carvedilol 12.5 Mg Tablet PO 12.5 mg BIDWM ELEN Administration Dextrose 12.5 gm 06/07/20 16:34 Dextrose 50% 25 Gm/50 Ml Syringe IV PUSH PRN PRN Hypoglycemia Protocol Docusate Sodium 100 mg 06/12/20 11:23 Docusate Sodium 100 Mg Capsule PO Q12HR PRN Constipation Furosemide 40 mg 06/08/20 09:00 06/14/20 09:18 Furosemide 40 Mg Tablet PO 40 mg DAILY ELEN Administration Glucagon 1 mg 06/07/20 16:34 Glucagon For Inj 1 Mg Vial IM PRN PRN Hypoglycemia Protocol Glucose 15 gm 06/07/20 16:34 Glucos
[2020-06-14 17:18] LABS: Glucose Point of Care 178 (65-105)
[2020-06-14 20:00] VITALS: PULSE 60; RESP 16; O2SAT 99
[2020-06-14 20:40] LABS: Glucose Point of Care 121 (65-105)
[2020-06-14 21:11] VITALS: BP 145/63; PULSE 60; RESP 16; TEMP 36; O2SAT 99
[2020-06-14] MEDS: INSULIN GLARGINE (*BKC) 100 UNITS/ML 26 UNITS SUB-Q (21:13)
[2020-06-14] MEDS: MELATONIN 3 MG TABLET PO (21:13)
[2020-06-15] MEDS: ACETAMINOPHEN 500 MG TABLET 1000 MG PO ×3 (01:38→16:29)
[2020-06-15 05:34] VITALS: BP 162/61; PULSE 52; RESP 16; TEMP 36.1; O2SAT 98
[2020-06-15 06:09] LABS: Basophils Percent Auto 0.4 % (0.2-1.2); Eosinophils Absolute Auto 0.3 K/mm3 (0-0.3); Eosinophils Percent Auto 3.7 % (0-4.4); Hematocrit 32.9 % (42.0-52.0); Hemoglobin 10.7 g/dL (14.0-18.0); Immature Granulocyte Absolute 0.04 K/mm3 (0.00-0.031); Immature Granulocyte Percent A 0.6 % (0-0.5); Lymphocytes Absolute Auto 1.14 K/mm3 (0.9-3.2); Lymphocytes Percent Auto 16.7 % (18.3-44.2); Mean Corpuscular HGB Conc 32.5 g/dl (32-36); Mean Corpuscular Hemoglobin 30.7 pg (26-34); Mean Corpuscular Volume 94.3 fl (80-100); Mean Platelet Volume 10.2 fl (7.4-10.4); Monocytes Absolute Auto 0.7 K/mm3 (0.1-0.6); Monocytes Percent Auto 10.6 % (2.6-8.5); Neutrophils Absolute Auto 4.6 K/mm3 (1.3-6.7); Platelet Count Result 232 k/mm3 (150-375); Red Blood Count 3.49 M/mm3 (4.6-6.20); Red Cell Distribution Width 13.9 % (11.5-14.5); White Blood Count 6.8 K/mm3 (4.5-10.0)
[2020-06-15 06:26] LABS: Anion Gap 7 mmol/L (8-16); Blood Urea Nitrogen 26 mg/dL (9-20); Calcium 8.5 mg/dL (8.4-10.2); Carbon Dioxide 27 mmol/L (22-30); Chloride 106 mmol/L (98-107); Estimated CRCL calculation 51 ml/min; Estimated Glomerular Filt Rate > 60; Glucose 76 mg/dL (75-110); Potassium 3.5 mmol/L (3.4-5.0); Sodium 140 mmol/L (137-145)
[2020-06-15 06:37] LABS: Glucose Point of Care 81 (65-105)
[2020-06-15] MEDS: ASCORBIC ACID 500 MG TABLET PO (08:32)
[2020-06-15] MEDS: PANTOPRAZOLE 40 MG TABLET PO (08:32)
[2020-06-15] MEDS: FUROSEMIDE 40 MG TABLET PO (08:32)
[2020-06-15] MEDS: CHOLECALCIFEROL 1,000 UNITS TABLET 2000 UNITS PO (08:32)
[2020-06-15] MEDS: ASPIRIN 81 MG CHEWABLE TABLET PO (08:32)
[2020-06-15] MEDS: TICAGRELOR 90 MG TABLET PO ×2 (08:32→21:40)
[2020-06-15] MEDS: ATORVASTATIN 40 MG TABLET 80 MG PO (08:32)
[2020-06-15 08:33] VITALS: PULSE 56
[2020-06-15] MEDS: allopurinoL 100 MG TABLET PO (08:33)
[2020-06-15] MEDS: lisinopriL 10 MG TABLET PO (08:33)
[2020-06-15] MEDS: carvediloL 12.5 MG TABLET PO ×2 (08:33→16:29)
[2020-06-15] MEDS: MULTIVITAMINS THERAPEUTIC TAB (*BKC) 1 TABLET PO (08:34)
[2020-06-15] MEDS: INSULIN GLARGINE (*BKC) 100 UNITS/ML 30 UNITS SUB-Q (08:36)
[2020-06-15] MEDS: INSULIN ASPART (*BKC) 100 UNITS/ML 16 UNITS SUB-Q ×3 (08:38→17:00)
--- NOTE | 2020-06-15 10:00 | WPDNEURORHBP ---
Subjective Date/time seen: 06/15/20 10:00 Interval history: 84-year-old male with past medical history coronary artery disease, hypertension, hyperlipidemia, diabetes mellitus, osteoarthritis, gout, rheumatic fever as a child who recently underwent stent placement for NSTEMI. Roughly 2 weeks later patient experienced left hemiplegia. 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 Patient was transferred to [facility] and patient was placed on aspirin, statin and Plavix. A bedside swallow revealed issues with drinking from a straw. Left foot pain better, less edematous. Patient requesting if can join him for lunch for Millie Review of Systems Review of Systems: All systems reviewed & are unremarkable except as noted in HPI and below Functional Status Ambulation Ability Ability to Ambulate 10 Feet: Standby Assistance Ability to Ambulate 50 Feet With 2 Turns: Standby Assistance Ability to Ambulate 150 Feet: Contact Guard Ambulation Assistive Devices: Walker, Wheeled Transfers Ability Ability to Transfer In/Out of Chair: Contact Guard Exam Narrative: Exam Narrative: Left facial droop is noted. Tongue is midline. Speech is fluent. Heart rate and rhythm is regular. Lungs are clear. Abdomen is obese. Right upper extremity strength is 4/5. Right lower extremity hip strength is 3/5 with distal strength being 4/5. Left upper extremity strength is 3+ out of 5 with fine motor dexterity deficits. Left lower extremity strength is 3+ to 4-. Sensation is intact in both upper and lower extremities. Left foot: Area is less swollen and less painful Transfers are CGA. Gait is 150 ft with SBA with a wheeled walker. Overall balance improved. Objective Data Vital Signs Vital Signs: Vital Signs - 24 hr 06/14/20 14:00 06/14/20 20:00 06/14/20 21:11 Temperature 36.1 C L 36.0 C L Pulse Rate 62 60 60 Respiratory Rate 18 16 16 Blood Pressure 149/56 H 145/63 H Pulse Oximetry 99 99 99 06/15/20 05:34 06/15/20 08:33 Temperature 36.1 C L Pulse Rate 52 L 56 L Respiratory Rate 16 Blood Pressure 162/61 H Pulse Oximetry 98 Intake/Output Intake/Output: Intake & Output 06/12/20 06/13/20 06/14/20 06/15/20 23:59 23:59 23:59 23:59 Intake Total 840 1440 720 240 Balance 840 1440 720 240 Meds/Results Medications: Active Medications Generic Name Dose Route Start Last Admin Trade Name Danita PRN Reason Stop Dose Admin Acetaminophen 1,000 mg 06/07/20 16:35 06/15/20 01:38 Acetaminophen 500 Mg Tablet PO 1,000 mg Q6H PRN Administration Mild Pain (1-3) or Fever Acetaminophen 1,000 mg 06/08/20 09:00 06/15/20 08:32 Acetaminophen 500 Mg Tablet PO 1,000 mg BID ELEN Administration Allopurinol 100 mg 06/09/20 08:00 06/15/20 08:33 Allopurinol 100 Mg Tablet PO 06/18/20 08:00 100 mg DAILY@0800 ELEN Administration Ascorbic Acid 500 mg 06/08/20 09:00 06/15/20 08:32 Ascorbic Acid 500 Mg Tablet PO 500 mg DAILY ELEN Administration Aspirin 81 mg 06/08/20 09:00 06/15/20 08:32 Aspirin 81 Mg Chewable Tablet PO 81 mg DAILY ELEN Administration Atorvastatin Calcium 80 mg 06/08/20 09:00 06/15/20 08:32 Atorvastatin 40 Mg Tablet PO 80 mg DAILY ELEN Administration Carvedilol 12.5 mg 06/07/20 17:00 06/15/20 08:33 Carvedilol 12.5 Mg Tablet PO 12.5 mg BIDWM ELEN Administration Dextrose 12.5 gm 06/07/20 16:34 Dextrose 50% 25 Gm/50 Ml Syringe IV PUSH PRN PRN Hypoglycemia Protocol Docusate Sodium 100 mg 06/12/20 11:23 Docusate Sodium 100 Mg Capsule PO Q12HR PRN Constipation Furosemide 40 mg 06/08/20 09:00 06/15/20 08:32 Furosemide 40 Mg Tablet PO 40 mg DAILY ELEN Administration Glucagon 1 mg 06/07/20 16:34 Glucagon For Inj 1 Mg Vial IM PRN PRN Hypoglycemia Protocol Glucose 15 gm 06/07/20 16:34 Glucose Oral Ge
[2020-06-15 11:36] LABS: Glucose Point of Care 174 (65-105)
[2020-06-15 14:00] VITALS: BP 140/68; PULSE 59; RESP 18; TEMP 36.2; O2SAT 98
[2020-06-15 16:29] VITALS: PULSE 58
[2020-06-15 16:34] LABS: Glucose Point of Care 138 (65-105)
[2020-06-15 20:00] VITALS: PULSE 83; RESP 16; O2SAT 99
[2020-06-15 20:23] LABS: Glucose Point of Care 151 (65-105)
[2020-06-15 20:31] VITALS: BP 148/55; PULSE 83; RESP 16; TEMP 36.3; O2SAT 99
[2020-06-15] MEDS: MELATONIN 3 MG TABLET PO (21:44)
[2020-06-15] MEDS: INSULIN GLARGINE (*BKC) 100 UNITS/ML 26 UNITS SUB-Q (21:44)
[2020-06-16 06:00] VITALS: BP 165/76; PULSE 59; RESP 16; TEMP 36.2; O2SAT 100
[2020-06-16 07:15] LABS: Glucose Point of Care 133 (65-105)
[2020-06-16 08:24] VITALS: PULSE 58
[2020-06-16] MEDS: carvediloL 12.5 MG TABLET PO ×2 (08:24→17:19)
[2020-06-16] MEDS: ACETAMINOPHEN 500 MG TABLET 1000 MG PO ×2 (08:24→17:18)
[2020-06-16] MEDS: ASPIRIN 81 MG CHEWABLE TABLET PO (08:25)
[2020-06-16] MEDS: ATORVASTATIN 40 MG TABLET 80 MG PO (08:25)
[2020-06-16] MEDS: CHOLECALCIFEROL 1,000 UNITS TABLET 2000 UNITS PO (08:25)
[2020-06-16] MEDS: MULTIVITAMINS THERAPEUTIC TAB (*BKC) 1 TABLET PO (08:25)
[2020-06-16] MEDS: PANTOPRAZOLE 40 MG TABLET PO (08:25)
[2020-06-16] MEDS: TICAGRELOR 90 MG TABLET PO ×2 (08:25→20:52)
[2020-06-16] MEDS: allopurinoL 100 MG TABLET PO (08:25)
[2020-06-16] MEDS: lisinopriL 10 MG TABLET PO (08:25)
[2020-06-16] MEDS: ASCORBIC ACID 500 MG TABLET PO (08:25)
[2020-06-16] MEDS: FUROSEMIDE 40 MG TABLET PO (08:25)
[2020-06-16] MEDS: INSULIN GLARGINE (*BKC) 100 UNITS/ML 30 UNITS SUB-Q (08:28)
[2020-06-16] MEDS: INSULIN ASPART (*BKC) 100 UNITS/ML 16 UNITS SUB-Q ×3 (08:29→17:20)
--- NOTE | 2020-06-16 09:52 | WPDNEURORHBP ---
Subjective Date/time seen: 06/16/20 09:52 Interval history: 84-year-old male with past medical history coronary artery disease, hypertension, hyperlipidemia, diabetes mellitus, osteoarthritis, gout, rheumatic fever as a child who recently underwent stent placement for NSTEMI. Roughly 2 weeks later patient experienced left hemiplegia. 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 Patient was transferred to [facility] and patient was placed on aspirin, statin and Plavix. A bedside swallow revealed issues with drinking from a straw. Left foot pain better, less edematous. will join him for lunch for [employer] Review of Systems Review of Systems: All systems reviewed & are unremarkable except as noted in HPI and below Functional Status Ambulation Ability Ability to Ambulate 10 Feet: Standby Assistance Ability to Ambulate 50 Feet With 2 Turns: Standby Assistance Ability to Ambulate 150 Feet: Contact Guard Ambulation Assistive Devices: Walker, Wheeled Transfers Ability Ability to Transfer In/Out of Chair: Contact Guard Exam Narrative: Exam Narrative: Left facial droop is noted. Tongue is midline. Speech is fluent. Heart rate and rhythm is regular. Lungs are clear. Abdomen is obese. Right upper extremity strength is 4/5. Right lower extremity hip strength is 3/5 with distal strength being 4/5. Left upper extremity strength is 3+ out of 5 with fine motor dexterity deficits. Left lower extremity strength is 3+ to 4-. Sensation is intact in both upper and lower extremities. Left foot: Area is less swollen and less painful Transfers are CGA. Gait is 150 ft with SBA with a wheeled walker. Overall balance improved. Objective Data Vital Signs Vital Signs: Vital Signs - 24 hr 06/15/20 14:00 06/15/20 16:29 06/15/20 20:00 Temperature 36.2 C L Pulse Rate 59 L 58 L 83 Respiratory Rate 18 16 Blood Pressure 140/68 Pulse Oximetry 98 99 06/15/20 20:31 06/16/20 06:00 06/16/20 08:24 Temperature 36.3 C L 36.2 C L Pulse Rate 83 59 L 58 L Respiratory Rate 16 16 Blood Pressure 148/55 H 165/76 H Pulse Oximetry 99 100 Intake/Output Intake/Output: Intake & Output 06/13/20 06/14/20 06/15/20 06/16/20 23:59 23:59 23:59 23:59 Intake Total 1440 720 720 240 Balance 1440 720 720 240 Meds/Results Medications: Active Medications Generic Name Dose Route Start Last Admin Trade Name Danita PRN Reason Stop Dose Admin Acetaminophen 1,000 mg 06/07/20 16:35 06/15/20 01:38 Acetaminophen 500 Mg Tablet PO 1,000 mg Q6H PRN Administration Mild Pain (1-3) or Fever Acetaminophen 1,000 mg 06/08/20 09:00 06/16/20 08:24 Acetaminophen 500 Mg Tablet PO 1,000 mg BID ELEN Administration Allopurinol 100 mg 06/09/20 08:00 06/16/20 08:25 Allopurinol 100 Mg Tablet PO 06/18/20 08:00 100 mg DAILY@0800 ELEN Administration Ascorbic Acid 500 mg 06/08/20 09:00 06/16/20 08:25 Ascorbic Acid 500 Mg Tablet PO 500 mg DAILY ELEN Administration Aspirin 81 mg 06/08/20 09:00 06/16/20 08:25 Aspirin 81 Mg Chewable Tablet PO 81 mg DAILY ELEN Administration Atorvastatin Calcium 80 mg 06/08/20 09:00 06/16/20 08:25 Atorvastatin 40 Mg Tablet PO 80 mg DAILY ELEN Administration Carvedilol 12.5 mg 06/07/20 17:00 06/16/20 08:24 Carvedilol 12.5 Mg Tablet PO 12.5 mg BIDWM ELEN Administration Dextrose 12.5 gm 06/07/20 16:34 Dextrose 50% 25 Gm/50 Ml Syringe IV PUSH PRN PRN Hypoglycemia Protocol Docusate Sodium 100 mg 06/12/20 11:23 Docusate Sodium 100 Mg Capsule PO Q12HR PRN Constipation Furosemide 40 mg 06/08/20 09:00 06/16/20 08:25 Furosemide 40 Mg Tablet PO 40 mg DAILY ELEN Administration Glucagon 1 mg 06/07/20 16:34 Glucagon For Inj 1 Mg Vial IM PRN PRN Hypoglycemia Protocol Glucose 15 gm 06/07/20 16:34 Glucose
[2020-06-16 11:51] LABS: Glucose Point of Care 183 (65-105)
[2020-06-16 14:00] VITALS: BP 137/57; PULSE 61; RESP 18; TEMP 36; O2SAT 100
[2020-06-16 16:45] LABS: Glucose Point of Care 190 (65-105)
[2020-06-16 17:19] VITALS: PULSE 60
[2020-06-16 20:10] LABS: Glucose Point of Care 218 (65-105)
[2020-06-16] MEDS: INSULIN GLARGINE (*BKC) 100 UNITS/ML 26 UNITS SUB-Q (20:51)
[2020-06-16] MEDS: MELATONIN 3 MG TABLET PO (20:51)
[2020-06-16 22:00] VITALS: BP 135/58; PULSE 58; RESP 16; TEMP 36.4; O2SAT 97
[2020-06-17 06:00] VITALS: BP 157/78; PULSE 70; RESP 18; TEMP 36.2; O2SAT 98
[2020-06-17 06:16] LABS: Glucose Point of Care 147 (65-105)
[2020-06-17] MEDS: INSULIN GLARGINE (*BKC) 100 UNITS/ML 30 UNITS SUB-Q (07:08)
[2020-06-17] MEDS: INSULIN ASPART (*BKC) 100 UNITS/ML 16 UNITS SUB-Q ×3 (07:09→16:50)
[2020-06-17 09:43] VITALS: PULSE 70
[2020-06-17] MEDS: lisinopriL 2.5 MG TABLET PO (09:43)
[2020-06-17] MEDS: ASPIRIN 81 MG CHEWABLE TABLET PO (09:43)
[2020-06-17] MEDS: carvediloL 12.5 MG TABLET PO ×2 (09:43→16:50)
[2020-06-17] MEDS: FUROSEMIDE 40 MG TABLET PO (09:44)
[2020-06-17] MEDS: allopurinoL 100 MG TABLET PO (09:44)
[2020-06-17] MEDS: ASCORBIC ACID 500 MG TABLET PO (09:44)
[2020-06-17] MEDS: lisinopriL 10 MG TABLET PO (09:44)
[2020-06-17] MEDS: MULTIVITAMINS THERAPEUTIC TAB (*BKC) 1 TABLET PO (09:44)
[2020-06-17] MEDS: TICAGRELOR 90 MG TABLET PO ×2 (09:44→20:44)
[2020-06-17] MEDS: CHOLECALCIFEROL 1,000 UNITS TABLET 2000 UNITS PO (09:44)
[2020-06-17] MEDS: PANTOPRAZOLE 40 MG TABLET PO (09:44)
[2020-06-17] MEDS: ATORVASTATIN 40 MG TABLET 80 MG PO (09:44)
[2020-06-17] MEDS: ACETAMINOPHEN 500 MG TABLET 1000 MG PO ×2 (09:47→16:49)
[2020-06-17 11:33] LABS: Glucose Point of Care 148 (65-105)
--- NOTE | 2020-06-17 12:50 | PCDIET ---
Nutrition Follow-Up Complete: Nutrition Diagnosis: Increased protein needs related to wound as evidenced by medial sacrum pressure ulcer. Nutrition Goal: Patient to consume 75% or more of meals on current diet order. Goal met. Patient consuming 100% of meals on diabetic diet. Patient reports good appetite and denies concerns. Reviewed heart healthy diet with patient and . Recommend heart healthy diabetic diet intermediate to reduce risk of future CVA. Discussed this with patient and . Last recorded weight is 97 kg. Recommend obtaining new weight. Bowel Motility: Last documented BM on 06/16/20. Labs Reviewed: Glu (148) Meds Noted: Vitamin C, Lipitor, Coreg, Colace, Lasix, Novolog, Lantus, Lisinopril, MVI/minerals, Protonix, Vitamin D Additional Notes: Mepilex to deep tissue injury on sacrum. Will continue to monitor with same goal. Nutrition Monitoring and Evaluation: Follow up every 7 days.
[2020-06-17 14:00] VITALS: BP 124/50; PULSE 57; RESP 18; TEMP 36.1; O2SAT 99
[2020-06-17 16:50] VITALS: PULSE 60
[2020-06-17 16:58] LABS: Glucose Point of Care 176 (65-105)
--- NOTE | 2020-06-17 17:06 | WPDNEURORHBP ---
Subjective Date/time seen: 06/17/20 17:06 Interval history: 84-year-old male with past medical history coronary artery disease, hypertension, hyperlipidemia, diabetes mellitus, osteoarthritis, gout, rheumatic fever as a child who recently underwent stent placement for NSTEMI. Roughly 2 weeks later patient experienced left hemiplegia. 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 Patient was transferred to [facility] and patient was placed on aspirin, statin and Plavix. A bedside swallow revealed issues with drinking from a straw. Left foot pain better. will be bringing new large shoes to accomodate the bunion Review of Systems Review of Systems: All systems reviewed & are unremarkable except as noted in HPI and below Functional Status Ambulation Ability Ability to Ambulate 10 Feet: Minimum Assistance X 1 Ability to Ambulate 50 Feet With 2 Turns: Standby Assistance Ability to Ambulate 150 Feet: Standby Assistance Ambulation Assistive Devices: Walker, Wheeled Transfers Ability Ability to Transfer In/Out of Chair: Independent Exam Narrative: Exam Narrative: Facial droop has improved. Tongue is midline. Speech is fluent. Heart rate and rhythm is regular. Lungs are clear. Abdomen is obese. Right upper extremity strength is 4/5. Right lower extremity hip strength is 4/5 with distal strength being 4/5. Left upper extremity strength is 3+ out of 5 with fine motor dexterity deficits. Left lower extremity strength is 4-. Sensation is intact in both upper and lower extremities. Transfers from chair independent. Gait is 150 ft with SBA with a wheeled walker. Overall balance improved. Objective Data Vital Signs Vital Signs: Vital Signs - 24 hr 06/16/20 17:19 06/16/20 22:00 06/17/20 06:00 Temperature 36.4 C 36.2 C L Pulse Rate 60 58 L 70 Respiratory Rate 16 18 Blood Pressure 135/58 L 157/78 H Pulse Oximetry 97 98 06/17/20 09:43 06/17/20 14:00 06/17/20 16:50 Temperature 36.1 C L Pulse Rate 70 57 L 60 Respiratory Rate 18 Blood Pressure 124/50 L Pulse Oximetry 99 Intake/Output Intake/Output: Intake & Output 06/14/20 06/15/20 06/16/20 06/17/20 23:59 23:59 23:59 23:59 Intake Total 720 720 720 480 Balance 720 720 720 480 Meds/Results Medications: Active Medications Generic Name Dose Route Start Last Admin Trade Name Danita PRN Reason Stop Dose Admin Acetaminophen 1,000 mg 06/07/20 16:35 06/15/20 01:38 Acetaminophen 500 Mg Tablet PO 1,000 mg Q6H PRN Administration Mild Pain (1-3) or Fever Acetaminophen 1,000 mg 06/08/20 09:00 06/17/20 16:49 Acetaminophen 500 Mg Tablet PO 1,000 mg BID ELEN Administration Allopurinol 100 mg 06/09/20 08:00 06/17/20 09:44 Allopurinol 100 Mg Tablet PO 06/18/20 08:00 100 mg DAILY@0800 ELEN Administration Ascorbic Acid 500 mg 06/08/20 09:00 06/17/20 09:44 Ascorbic Acid 500 Mg Tablet PO 500 mg DAILY ELEN Administration Aspirin 81 mg 06/08/20 09:00 06/17/20 09:43 Aspirin 81 Mg Chewable Tablet PO 81 mg DAILY ELEN Administration Atorvastatin Calcium 80 mg 06/08/20 09:00 06/17/20 09:44 Atorvastatin 40 Mg Tablet PO 80 mg DAILY ELEN Administration Carvedilol 12.5 mg 06/07/20 17:00 06/17/20 16:50 Carvedilol 12.5 Mg Tablet PO 12.5 mg BIDWM ELEN Administration Dextrose 12.5 gm 06/07/20 16:34 Dextrose 50% 25 Gm/50 Ml Syringe IV PUSH PRN PRN Hypoglycemia Protocol Docusate Sodium 100 mg 06/12/20 11:23 Docusate Sodium 100 Mg Capsule PO Q12HR PRN Constipation Furosemide 40 mg 06/08/20 09:00 06/17/20 09:44 Furosemide 40 Mg Tablet PO 40 mg DAILY ELEN Administration Glucagon 1 mg 06/07/20 16:34 Glucagon For Inj 1 Mg Vial IM PRN PRN Hypoglycemia Protocol Glucose 15 gm 06/07/20 16:34 Glucose Oral Gel 15 Gm Of Glucse In 37.5 Gm Tube
[2020-06-17] MEDS: MELATONIN 3 MG TABLET PO (20:44)
[2020-06-17] MEDS: INSULIN GLARGINE (*BKC) 100 UNITS/ML 26 UNITS SUB-Q (20:46)
[2020-06-17 21:12] LABS: Glucose Point of Care 174 (65-105)
[2020-06-17 22:00] VITALS: BP 122/62; PULSE 61; RESP 16; TEMP 37.1; O2SAT 97
[2020-06-18] VITALS (7 sets, daily range): BP systolic 112–147; BP diastolic 46–70; PULSE 55–69; RESP 16–20; TEMP 35.9–36.5; O2SAT 95–100
[2020-06-18 06:20] LABS: Glucose Point of Care 83 (65-105)
[2020-06-18 08:17] LABS: Glucose Point of Care 75 (65-105)
[2020-06-18] MEDS: lisinopriL 2.5 MG TABLET PO (08:20)
[2020-06-18] MEDS: TICAGRELOR 90 MG TABLET PO ×2 (08:20→23:01)
[2020-06-18] MEDS: allopurinoL 100 MG TABLET PO (08:20)
[2020-06-18] MEDS: ATORVASTATIN 40 MG TABLET 80 MG PO (08:20)
[2020-06-18] MEDS: lisinopriL 10 MG TABLET PO (08:21)
[2020-06-18] MEDS: FUROSEMIDE 40 MG TABLET PO (08:21)
[2020-06-18] MEDS: ASPIRIN 81 MG CHEWABLE TABLET PO (08:21)
[2020-06-18] MEDS: MULTIVITAMINS THERAPEUTIC TAB (*BKC) 1 TABLET PO (08:21)
[2020-06-18] MEDS: PANTOPRAZOLE 40 MG TABLET PO (08:21)
[2020-06-18] MEDS: CHOLECALCIFEROL 1,000 UNITS TABLET 2000 UNITS PO (08:21)
[2020-06-18] MEDS: carvediloL 12.5 MG TABLET PO ×2 (08:22→17:21)
[2020-06-18] MEDS: ASCORBIC ACID 500 MG TABLET PO (08:22)
[2020-06-18] MEDS: ACETAMINOPHEN 500 MG TABLET 1000 MG PO ×2 (08:33→17:21)
[2020-06-18 10:39] LABS: Glucose Point of Care 226 (65-105)
[2020-06-18] MEDS: INSULIN GLARGINE (*BKC) 100 UNITS/ML 30 UNITS SUB-Q (10:44)
[2020-06-18] MEDS: INSULIN ASPART (*BKC) 100 UNITS/ML 16 UNITS SUB-Q ×2 (10:46→17:21)
[2020-06-18 12:07] LABS: Glucose Point of Care 203 (65-105)
--- NOTE | 2020-06-18 12:47 | PC.NURSE ---
After talking with Dr. Jain lunchtime novolog insulin was held due to patient just receiving morning novolog only 2 hrs ago. will continue to monitor patient.
--- NOTE | 2020-06-18 16:24 | WPDNEURORHBP ---
Subjective Date/time seen: 06/18/20 16:24 Interval history: 84-year-old male with past medical history coronary artery disease, hypertension, hyperlipidemia, diabetes mellitus, osteoarthritis, gout, rheumatic fever as a child who recently underwent stent placement for NSTEMI. Roughly 2 weeks later patient experienced left hemiplegia. 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 Patient was transferred to [facility] and patient was placed on aspirin, statin and Plavix. A bedside swallow revealed issues with drinking from a straw. Left foot pain better. will be bringing new large shoes to accomodate the bunion Review of Systems Review of Systems: All systems reviewed & are unremarkable except as noted in HPI and below Functional Status Ambulation Ability Ability to Ambulate 10 Feet: Independent Ability to Ambulate 50 Feet With 2 Turns: Independent Ability to Ambulate 150 Feet: Independent Ambulation Assistive Devices: Walker, Wheeled Transfers Ability Ability to Transfer In/Out of Chair: Independent Exam Narrative: Exam Narrative: Facial droop has improved. Tongue is midline. Speech is fluent. Heart rate and rhythm is regular. Lungs are clear. Abdomen is obese. Right upper extremity strength is 4/5. Right lower extremity hip strength is 4/5 with distal strength being 4/5. Left upper extremity strength is 3+ out of 5 with fine motor dexterity deficits. Left lower extremity strength is 4-. Sensation is intact in both upper and lower extremities. Transfers from chair independent. Gait is 150 ft with SBA with a wheeled walker. Overall balance improved. Objective Data Vital Signs Vital Signs: Vital Signs - 24 hr 06/17/20 16:50 06/17/20 22:00 06/18/20 06:00 Temperature 37.1 C 35.9 C L Pulse Rate 60 61 55 L Respiratory Rate 16 16 Blood Pressure 122/62 147/64 H Pulse Oximetry 97 98 06/18/20 08:00 06/18/20 08:22 06/18/20 14:00 Temperature 36.1 C L Pulse Rate 64 64 69 Respiratory Rate 16 20 Blood Pressure 127/70 Pulse Oximetry 98 95 Intake/Output Intake/Output: Intake & Output 06/15/20 06/16/20 06/17/20 06/18/20 23:59 23:59 23:59 23:59 Intake Total 720 720 720 600 Balance 720 720 720 600 Meds/Results Medications: Active Medications Generic Name Dose Route Start Last Admin Trade Name Danita PRN Reason Stop Dose Admin Acetaminophen 1,000 mg 06/07/20 16:35 06/15/20 01:38 Acetaminophen 500 Mg Tablet PO 1,000 mg Q6H PRN Administration Mild Pain (1-3) or Fever Acetaminophen 1,000 mg 06/08/20 09:00 06/18/20 08:33 Acetaminophen 500 Mg Tablet PO 1,000 mg BID ELEN Administration Ascorbic Acid 500 mg 06/08/20 09:00 06/18/20 08:22 Ascorbic Acid 500 Mg Tablet PO 500 mg DAILY ELEN Administration Aspirin 81 mg 06/08/20 09:00 06/18/20 08:21 Aspirin 81 Mg Chewable Tablet PO 81 mg DAILY ELEN Administration Atorvastatin Calcium 80 mg 06/08/20 09:00 06/18/20 08:20 Atorvastatin 40 Mg Tablet PO 80 mg DAILY ELEN Administration Carvedilol 12.5 mg 06/07/20 17:00 06/18/20 08:22 Carvedilol 12.5 Mg Tablet PO 12.5 mg BIDWM ELEN Administration Dextrose 12.5 gm 06/07/20 16:34 Dextrose 50% 25 Gm/50 Ml Syringe IV PUSH PRN PRN Hypoglycemia Protocol Docusate Sodium 100 mg 06/12/20 11:23 Docusate Sodium 100 Mg Capsule PO Q12HR PRN Constipation Furosemide 40 mg 06/08/20 09:00 06/18/20 08:21 Furosemide 40 Mg Tablet PO 40 mg DAILY ELEN Administration Glucagon 1 mg 06/07/20 16:34 Glucagon For Inj 1 Mg Vial IM PRN PRN Hypoglycemia Protocol Glucose 15 gm 06/07/20 16:34 Glucose Oral Gel 15 Gm Of Glucse In 37.5 Gm Tube PO PRN PRN Hypoglycemia Protocol Dextrose 1,000 mls @ 100 mls/hr 06/07/20 16:34 Dextrose 5% 1,000 Ml IVPB PRN PRN Hypoglycemia Pro
[2020-06-18 16:55] LABS: Glucose Point of Care 189 (65-105)
[2020-06-18 21:59] LABS: Glucose Point of Care 127 (65-105)
[2020-06-18] MEDS: MELATONIN 3 MG TABLET PO (23:01)
[2020-06-18] MEDS: INSULIN GLARGINE (*BKC) 100 UNITS/ML 10 UNITS SUB-Q (23:06)
[2020-06-19] VITALS (7 sets, daily range): BP systolic 115–149; BP diastolic 52–63; PULSE 54–73; RESP 18–20; TEMP 36.4–36.8; O2SAT 96–98
[2020-06-19 06:52] LABS: Glucose Point of Care 142 (65-105)
[2020-06-19] MEDS: INSULIN GLARGINE (*BKC) 100 UNITS/ML 30 UNITS SUB-Q (07:28)
[2020-06-19] MEDS: INSULIN ASPART (*BKC) 100 UNITS/ML 16 UNITS SUB-Q ×3 (07:29→16:55)
[2020-06-19] MEDS: ATORVASTATIN 40 MG TABLET 80 MG PO (09:25)
[2020-06-19] MEDS: PANTOPRAZOLE 40 MG TABLET PO (09:25)
[2020-06-19] MEDS: lisinopriL 10 MG TABLET PO (09:25)
[2020-06-19] MEDS: lisinopriL 2.5 MG TABLET PO (09:25)
[2020-06-19] MEDS: carvediloL 12.5 MG TABLET PO ×2 (09:25→16:56)
[2020-06-19] MEDS: ASPIRIN 81 MG CHEWABLE TABLET PO (09:25)
[2020-06-19] MEDS: TICAGRELOR 90 MG TABLET PO ×2 (09:25→22:02)
[2020-06-19] MEDS: MULTIVITAMINS THERAPEUTIC TAB (*BKC) 1 TABLET PO (09:25)
[2020-06-19] MEDS: FUROSEMIDE 40 MG TABLET PO (09:25)
[2020-06-19] MEDS: CHOLECALCIFEROL 1,000 UNITS TABLET 2000 UNITS PO (09:25)
[2020-06-19] MEDS: ASCORBIC ACID 500 MG TABLET PO (09:25)
[2020-06-19] MEDS: ACETAMINOPHEN 500 MG TABLET 1000 MG PO ×2 (09:41→11:58)
[2020-06-19 11:09] LABS: Glucose Point of Care 239 (65-105)
--- NOTE | 2020-06-19 15:36 | WPDNEURORHBP ---
Subjective Date/time seen: 06/19/20 15:36 Interval history: 84-year-old male with past medical history coronary artery disease, hypertension, hyperlipidemia, diabetes mellitus, osteoarthritis, gout, rheumatic fever as a child who recently underwent stent placement for NSTEMI. Roughly 2 weeks later patient experienced left hemiplegia. 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 Patient was transferred to [facility] and patient was placed on aspirin, statin and Plavix. A bedside swallow revealed issues with drinking from a straw is present for training. Patient feels prepared for discharge Review of Systems Review of Systems: All systems reviewed & are unremarkable except as noted in HPI and below Functional Status Ambulation Ability Ability to Ambulate 10 Feet: Independent Ability to Ambulate 50 Feet With 2 Turns: Independent Ability to Ambulate 150 Feet: Independent Ambulation Assistive Devices: Walker, Wheeled Transfers Ability Ability to Transfer In/Out of Chair: Independent Exam Narrative: Exam Narrative: Facial droop has improved. Tongue is midline. Speech is fluent. Heart rate and rhythm is regular. Lungs are clear. Abdomen is obese. Right upper extremity strength is 4/5. Right lower extremity hip strength is 4/5 with distal strength being 4/5. Left upper extremity strength is 3+ out of 5 with fine motor dexterity deficits. Left lower extremity strength is 4-. Sensation is intact in both upper and lower extremities. Transfers from chair independent. Gait is 150 ft with supervision with a wheeled walker. Overall balance improved. Objective Data Vital Signs Vital Signs: Vital Signs - 24 hr 06/18/20 17:21 06/18/20 21:15 06/18/20 21:34 Temperature 36.5 C Pulse Rate 69 69 69 Respiratory Rate 18 18 Blood Pressure 112/46 L Pulse Oximetry 100 100 06/19/20 05:38 06/19/20 08:30 06/19/20 09:25 Temperature 36.4 C Pulse Rate 67 73 70 Respiratory Rate 18 Blood Pressure 115/63 Pulse Oximetry 97 96 06/19/20 14:00 Temperature 36.8 C Pulse Rate 72 Respiratory Rate 20 Blood Pressure 115/56 L Pulse Oximetry 97 Intake/Output Intake/Output: Intake & Output 06/16/20 06/17/20 06/18/20 06/19/20 23:59 23:59 23:59 23:59 Intake Total 720 720 840 480 Balance 720 720 840 480 Meds/Results Medications: Active Medications Generic Name Dose Route Start Last Admin Trade Name Danita PRN Reason Stop Dose Admin Acetaminophen 1,000 mg 06/07/20 16:35 06/15/20 01:38 Acetaminophen 500 Mg Tablet PO 1,000 mg Q6H PRN Administration Mild Pain (1-3) or Fever Acetaminophen 1,000 mg 06/19/20 12:00 06/19/20 11:58 Acetaminophen 500 Mg Tablet PO 1,000 mg 0800,1200 ELEN Administration Ascorbic Acid 500 mg 06/08/20 09:00 06/19/20 09:25 Ascorbic Acid 500 Mg Tablet PO 500 mg DAILY ELEN Administration Aspirin 81 mg 06/08/20 09:00 06/19/20 09:25 Aspirin 81 Mg Chewable Tablet PO 81 mg DAILY ELEN Administration Atorvastatin Calcium 80 mg 06/08/20 09:00 06/19/20 09:25 Atorvastatin 40 Mg Tablet PO 80 mg DAILY ELEN Administration Carvedilol 12.5 mg 06/07/20 17:00 06/19/20 09:25 Carvedilol 12.5 Mg Tablet PO 12.5 mg BIDWM ELEN Administration Dextrose 12.5 gm 06/07/20 16:34 Dextrose 50% 25 Gm/50 Ml Syringe IV PUSH PRN PRN Hypoglycemia Protocol Docusate Sodium 100 mg 06/12/20 11:23 Docusate Sodium 100 Mg Capsule PO Q12HR PRN Constipation Furosemide 40 mg 06/08/20 09:00 06/19/20 09:25 Furosemide 40 Mg Tablet PO 40 mg DAILY ELEN Administration Glucagon 1 mg 06/07/20 16:34 Glucagon For Inj 1 Mg Vial IM PRN PRN Hypoglycemia Protocol Glucose 15 gm 06/07/20 16:34 Glucose Oral Gel 15 Gm Of Glucse In 37.5 Gm Tube PO PRN PRN Hypoglycemia Protocol Dextrose 1,000 mls @ 10
[2020-06-19 16:30] LABS: Glucose Point of Care 253 (65-105)
[2020-06-19] MEDS: INSULIN GLARGINE (*BKC) 100 UNITS/ML 24 UNITS SUB-Q (22:01)
[2020-06-19] MEDS: MELATONIN 3 MG TABLET PO (22:01)
[2020-06-19 22:12] LABS: Glucose Point of Care 161 (65-105)
[2020-06-20] MEDS: ACETAMINOPHEN 500 MG TABLET 1000 MG PO ×4 (03:59→21:57)
[2020-06-20 05:16] VITALS: BP 147/77; PULSE 58; RESP 16; TEMP 36.6; O2SAT 96
[2020-06-20 06:26] LABS: Glucose Point of Care 123 (65-105)
[2020-06-20] MEDS: ATORVASTATIN 40 MG TABLET 80 MG PO (07:37)
[2020-06-20 07:38] VITALS: PULSE 60
[2020-06-20] MEDS: PANTOPRAZOLE 40 MG TABLET PO (07:38)
[2020-06-20] MEDS: lisinopriL 2.5 MG TABLET PO (07:38)
[2020-06-20] MEDS: lisinopriL 10 MG TABLET PO (07:38)
[2020-06-20] MEDS: MULTIVITAMINS THERAPEUTIC TAB (*BKC) 1 TABLET PO (07:38)
[2020-06-20] MEDS: carvediloL 12.5 MG TABLET PO ×2 (07:38→17:06)
[2020-06-20] MEDS: CHOLECALCIFEROL 1,000 UNITS TABLET 2000 UNITS PO (07:38)
[2020-06-20] MEDS: FUROSEMIDE 40 MG TABLET PO (07:38)
[2020-06-20] MEDS: ASPIRIN 81 MG CHEWABLE TABLET PO (07:38)
[2020-06-20] MEDS: TICAGRELOR 90 MG TABLET PO ×2 (07:38→21:53)
[2020-06-20] MEDS: INSULIN ASPART (*BKC) 100 UNITS/ML 16 UNITS SUB-Q (07:38)
[2020-06-20] MEDS: ASCORBIC ACID 500 MG TABLET PO (07:38)
[2020-06-20] MEDS: INSULIN GLARGINE (*BKC) 100 UNITS/ML 30 UNITS SUB-Q (07:39)
[2020-06-20 11:48] LABS: Glucose Point of Care 107 (65-105)
--- NOTE | 2020-06-20 12:11 | PC.NURSE ---
pt noon blood glucose at 107. spoke with Dr Jain who decreased scheduled novolog but did state to hold today.
--- NOTE | 2020-06-20 13:44 | WPDNEURORHBP ---
Subjective Date/time seen: 06/20/20 13:44 Interval history: 84-year-old male with past medical history coronary artery disease, hypertension, hyperlipidemia, diabetes mellitus, osteoarthritis, gout, rheumatic fever as a child who recently underwent stent placement for NSTEMI. Roughly 2 weeks later patient experienced left hemiplegia. 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 Patient was transferred to [facility] and patient was placed on aspirin, statin and Plavix. Patient complaining of temperature in the room. Patient is looking forward to moving home. Review of Systems Review of Systems: All systems reviewed & are unremarkable except as noted in HPI and below Functional Status Ambulation Ability Ability to Ambulate 10 Feet: Independent Ability to Ambulate 50 Feet With 2 Turns: Independent Ability to Ambulate 150 Feet: Independent Ambulation Assistive Devices: Walker, Wheeled Transfers Ability Ability to Transfer In/Out of Chair: Independent Exam Narrative: Exam Narrative: Facial droop has improved. Tongue is midline. Speech is fluent. Heart rate and rhythm is regular. Lungs are clear. Abdomen is obese. Right upper extremity strength is 4/5. Right lower extremity hip strength is 4/5 with distal strength being 4/5. Left upper extremity strength is 3+ out of 5 with fine motor dexterity deficits. Left lower extremity strength is 4-. Sensation is intact in both upper and lower extremities. Transfers from chair independent. Gait is 150 ft with supervision with a wheeled walker. Overall balance improved. Objective Data Vital Signs Vital Signs: Vital Signs - 24 hr 06/19/20 14:00 06/19/20 16:56 06/19/20 20:00 Temperature 36.8 C Pulse Rate 72 72 54 L Respiratory Rate 20 18 Blood Pressure 115/56 L Pulse Oximetry 97 98 06/19/20 21:43 06/20/20 05:16 06/20/20 07:38 Temperature 36.4 C 36.6 C Pulse Rate 54 L 58 L 60 Respiratory Rate 18 16 Blood Pressure 149/52 H 147/77 H Pulse Oximetry 98 96 Intake/Output Intake/Output: Intake & Output 06/17/20 06/18/20 06/19/20 06/20/20 23:59 23:59 23:59 23:59 Intake Total 720 840 720 240 Balance 720 840 720 240 Meds/Results Medications: Active Medications Generic Name Dose Route Start Last Admin Trade Name Danita PRN Reason Stop Dose Admin Acetaminophen 1,000 mg 06/07/20 16:35 06/20/20 03:59 Acetaminophen 500 Mg Tablet PO 1,000 mg Q6H PRN Administration Mild Pain (1-3) or Fever Acetaminophen 1,000 mg 06/19/20 12:00 06/20/20 12:08 Acetaminophen 500 Mg Tablet PO 1,000 mg 0800,1200 ELEN Administration Ascorbic Acid 500 mg 06/08/20 09:00 06/20/20 07:38 Ascorbic Acid 500 Mg Tablet PO 500 mg DAILY ELEN Administration Aspirin 81 mg 06/08/20 09:00 06/20/20 07:38 Aspirin 81 Mg Chewable Tablet PO 81 mg DAILY ELEN Administration Atorvastatin Calcium 80 mg 06/08/20 09:00 06/20/20 07:37 Atorvastatin 40 Mg Tablet PO 80 mg DAILY ELEN Administration Carvedilol 12.5 mg 06/07/20 17:00 06/20/20 07:38 Carvedilol 12.5 Mg Tablet PO 12.5 mg BIDWM ELEN Administration Dextrose 12.5 gm 06/07/20 16:34 Dextrose 50% 25 Gm/50 Ml Syringe IV PUSH PRN PRN Hypoglycemia Protocol Docusate Sodium 100 mg 06/12/20 11:23 Docusate Sodium 100 Mg Capsule PO Q12HR PRN Constipation Furosemide 40 mg 06/08/20 09:00 06/20/20 07:38 Furosemide 40 Mg Tablet PO 40 mg DAILY ELEN Administration Glucagon 1 mg 06/07/20 16:34 Glucagon For Inj 1 Mg Vial IM PRN PRN Hypoglycemia Protocol Glucose 15 gm 06/07/20 16:34 Glucose Oral Gel 15 Gm Of Glucse In 37.5 Gm Tube PO PRN PRN Hypoglycemia Protocol Dextrose 1,000 mls @ 100 mls/hr 06/07/20 16:34 Dextrose 5% 1,000 Ml IVPB PRN PRN Hypoglycemia Protocol Insulin Aspart 10 units
[2020-06-20 14:00] VITALS: BP 159/58; PULSE 60; RESP 18; TEMP 36.4; O2SAT 97
[2020-06-20 16:56] LABS: Glucose Point of Care 187 (65-105)
[2020-06-20 17:06] VITALS: PULSE 66
[2020-06-20] MEDS: INSULIN ASPART (*BKC) 100 UNITS/ML 10 UNITS SUB-Q (17:07)
[2020-06-20 21:50] VITALS: PULSE 58; RESP 16; O2SAT 97
[2020-06-20 21:54] LABS: Glucose Point of Care 217 (65-105)
[2020-06-20] MEDS: MELATONIN 3 MG TABLET PO (21:54)
[2020-06-20] MEDS: INSULIN GLARGINE (*BKC) 100 UNITS/ML 24 UNITS SUB-Q (21:54)
[2020-06-20 22:00] VITALS: BP 165/63; PULSE 58; RESP 16; TEMP 35.9; O2SAT 97
[2020-06-21 05:12] VITALS: BP 176/80; PULSE 57; RESP 16; TEMP 35.9; O2SAT 97
[2020-06-21 07:12] LABS: Glucose Point of Care 156 (65-105)
[2020-06-21] MEDS: INSULIN ASPART (*BKC) 100 UNITS/ML 10 UNITS SUB-Q (07:15)
[2020-06-21] MEDS: INSULIN GLARGINE (*BKC) 100 UNITS/ML 30 UNITS SUB-Q (07:16)
[2020-06-21] MEDS: TICAGRELOR 90 MG TABLET PO (08:57)
[2020-06-21] MEDS: ATORVASTATIN 40 MG TABLET 80 MG PO (08:57)
[2020-06-21] MEDS: ASPIRIN 81 MG CHEWABLE TABLET PO (08:57)
[2020-06-21 08:58] VITALS: PULSE 60
[2020-06-21] MEDS: lisinopriL 10 MG TABLET PO (08:58)
[2020-06-21] MEDS: carvediloL 12.5 MG TABLET PO (08:58)
[2020-06-21] MEDS: MULTIVITAMINS THERAPEUTIC TAB (*BKC) 1 TABLET PO (08:58)
[2020-06-21] MEDS: PANTOPRAZOLE 40 MG TABLET PO (08:58)
[2020-06-21] MEDS: FUROSEMIDE 40 MG TABLET PO (08:58)
[2020-06-21] MEDS: CHOLECALCIFEROL 1,000 UNITS TABLET 2000 UNITS PO (08:58)
[2020-06-21] MEDS: lisinopriL 2.5 MG TABLET PO (08:58)
[2020-06-21] MEDS: ACETAMINOPHEN 500 MG TABLET 1000 MG PO (08:58)
[2020-06-21] MEDS: ASCORBIC ACID 500 MG TABLET PO (08:58)
--- NOTE | 2020-06-21 09:10 | PM.DS ---
DS: Admitting Diagnosis Admitting Diagnosis Admitting Diagnosis: CVA with left hemiplegia DS: Discharge Diagnosis Discharge Diagnosis (1) Left hemiplegia: Code(s): G81.94 - Hemiplegia, unspecified affecting left nondominant side Status: Acute Assessment and Plan: PT OT (2) CVA (cerebral vascular accident): Code(s): I63.9 - Cerebral infarction, unspecified Status: Acute Assessment and Plan: Patient will also receive speech therapy. Patient does demonstrate facial weakness. PT OT ST (3) Osteoarthritis of right hip: Code(s): M16.11 - Unilateral primary osteoarthritis, right hip Status: Acute Assessment and Plan: limiting barrier to progress x-ray reveals moderate to severe osteoarthritis (4) Type 2 diabetes mellitus: Code(s): E11.9 - Type 2 diabetes mellitus without complications Status: Acute Assessment and Plan: close monitoring of insulin needs. Adjustments today (5) Hyperlipidemia: Code(s): E78.5 - Hyperlipidemia, unspecified Status: Acute Assessment and Plan: Lipitor (6) Hypertension: Code(s): I10 - Essential (primary) hypertension Status: Acute Assessment and Plan: Coreg 12.5 mg b.i.d.. Lasix 40 mg daily. Lisinopril 10 mg daily. Blood pressure continues to be elevated. Will change lisinopril from 10 mg to 12.5 mg and continue to follow. BP remains somewhat elevated. NO change in meds but will need close monitoring at discharge. (7) Coronary artery disease: Code(s): I25.10 - Atherosclerotic heart disease of [place] coronary artery without angina pectoris Status: Acute Assessment and Plan: anticoagulated (8) Insomnia: Code(s): G47.00 - Insomnia, unspecified Status: Acute Assessment and Plan: add melatonin (9) Right hip pain: Code(s): M25.551 - Pain in right hip Status: Acute Assessment and Plan: patient given Tylenol (10) Non-STEMI (non-ST elevated myocardial infarction): Code(s): I21.4 - Non-ST elevation (NSTEMI) myocardial infarction Status: Acute Assessment and Plan: anticoagulated (11) Dysphagia: Code(s): R13.10 - Dysphagia, unspecified Status: Acute Assessment and Plan: speech DS: Summary Hospital Course Hospital Course: see dictation Time Spent with Patient Time attestation: Chief Complaint: CVA with left hemiplegia Narrative: HISTORY OF PRESENT ILLNESS: The patient's primary rehab impairment category is stroke The etiologic diagnosis is acute subcortical right hemispheric stroke, left a septal lobe subacute infarc The patient is a 84-year-old male with past medical history of coronary artery disease hypertension hyperlipidemia diabetes mellitus osteoarthritis rheumatic fever as a child who recently had a non STEMI with stent placement.. Patient was getting cardiac rehab at [facility] on 06/03/2020 when patient began experiencing left-sided weakness. Initial NIH SS was 3. CT of the head showed no acute intracranial hemorrhage. Patient was given tPA and transferred to [facility]. Neurology was consulted. MRI of the brain showed acute subacute infarcts involving the posterior limb of the right internal capsule and left occipital lobe. Carotid Dopplers revealed minimal plaques on the right and 50% on the left. Patient was started on aspirin and a statin and Plavix. A bedside swallow was performed and patient was instructed to not have straws. Patient was started on a regular consistency carbohydrate diet with reduced sodium. Patient had mild left-sided weakness decreased safety awareness and impaired balance. Therapy was initiated at the acute care facility and the patient transferred to us from [facility] on 06/07/2020 REHAB HOSPITAL COURSE: BP: LISINOPRIL WAS INCREASED FROM 10 MG TO 12.5 MG DM: ONGOING ADJUSTM
== END 2020-06-21 10:30 | disposition home health service (06) | DRG 56 ==
PROVIDERS: Admitting Provider Physical Medicine & Rehabilitation; PCP Pediatrics; Visit Provider Physical Medicine & Rehabilitation
DX: I69.354 Hemiplegia and hemiparesis following cerebral infarction affecting left non-dominant side (principal); I21.4 Non-ST elevation (NSTEMI) myocardial infarction; N18.4 Chronic kidney disease, stage 4 (severe); I69.392 Facial weakness following cerebral infarction; I69.391 Dysphagia following cerebral infarction; R13.10 Dysphagia, unspecified; E11.22 Type 2 diabetes mellitus with diabetic chronic kidney disease; E78.5 Hyperlipidemia, unspecified; G47.00 Insomnia, unspecified; I25.10 Atherosclerotic heart disease of native coronary artery without angina pectoris; I12.9 Hypertensive chronic kidney disease with stage 1 through stage 4 chronic kidney disease, or unspecified chronic kidney disease; M16.0 Bilateral primary osteoarthritis of hip; M10.9 Gout, unspecified; M20.12 Hallux valgus (acquired), left foot; Z96.653 Presence of artificial knee joint, bilateral; Z95.1 Presence of aortocoronary bypass graft; Z87.891 Personal history of nicotine dependence; Z79.4 Long term (current) use of insulin
CPT/HCPCS: 36415; 73502; 73620; 80048; 80053; 80061; 82948; 83036; 84550; 85025; 92508; 92523; 92526; 92610; 97110; 97116; 97162; 97166; 97530; 97535; 97542; A9270; J1815